=== PATIENT | female | born 1975 | race Hispanic/Latino ===

== ENCOUNTER 2024-04-06 01:27 | Emergency (ER) | payer SELFPAY ==
--- OUTSIDE RECORDS SUMMARY | 2024-04-06 01:31 | XMS REPORT | Continuity of Care Document ---
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 Phone PCP, PATIENT DOES NOT HAVE A Primary Care Physic federico Unavailable Abby Attending Clinician Unavailable Charles Almanza Attending Clinician [phone] CHARLES MORAES Attending Clinician Unavailable Kush Hubbard MD Attending Clinician [phone] Abby Admitting Clinician Unavailable CHARLES MORAES Admitting Clinician Unavailable Payers Payer Name Policy Type Policy Number Effective Date Expirati on Date Source Problems Condition Name Condition Details Condition Category Status Onset Date Resolution Date Last Treatment Date Treating Clinician Comments Source Nausea and vomiting Nausea and Vomiting Problem Active 09-11 00:00: 00 [facility] Acute urinary tract infection Acute Urinary Tract Infection Problem Active 09-11 00:00: 00 [facility] Dizziness Dizziness Problem Active 09-11 00:00: 00 [facility] Vertigo Vertigo Problem Active 09-11 00:00: 00 [facility] No known active problems No known active problems Disease [facility] Allergies, Adverse Reactions, Alerts Allergy Name Allergy Type Status Severity Reaction(s) Onset Date Inactive Date Treating Clinician Comments Source NO KNOWN ALLERGIE S Drug Class Active [facility] Social History Social Habit Start Date Stop Date Quantity Comments Source Sex Assigned At [facility] Smoking Status Start Date Stop Date Source Former Smoker Formerly [facility] Unknown if ever smoked [facility] Medications Ordered Medication Name Filled Medication Name Start Date Stop Date Current Medication? Ordering Clinician Indication Dosage Frequency Signature (SIG) Comments Components Source NaCl 0.9% (NS) bolus infusion 1,000 mL 09-25 20:15: 09-25 20:30 :00 No 1000mL at 999 mL/hr, 1,000 mL, IV Infusion, ONCE, 1 dose, 09/25/19 at 1415, STAT [facility] famotidine (PEPCID (PF)) injection 20 mg 09-25 20:15: 09-25 19:27 :00 No 20mg 20 mg, Slow IV Push, ONCE, 1 dose, 09/25/19 at 1415, [facility] ondansetron (ZOFRAN (PF)) injection 4 mg 09-25 20:15: 09-25 19:26 :00 No 4mg 4 mg, Slow IV Push, ONCE, 1 dose, 09/25/19 at 1415, [facility] proMETHazin e (PHENERGAN) 25 mg in NaCl 0.9% (NS) 50 mL piggyback 09-25 19:15: 09-25 18:15 :00 No 25mg 25 mg, IV Piggyback, ONCE, 1 dose, 09/25/19 at 1315, 50 mL [facility] NaCl 0.9% (NS) bolus infusion 1,000 mL 09-25 19:15: 09-25 19:08 :00 No 1000mL at 999 mL/hr, 1,000 mL, IV Infusion, ONCE, 1 dose, 09/25/19 at 1315, STAT [facility] proMETHazin e 25 mg tablet 09-25 00:00: 00 Yes [id number] 12.5mg Take 0.5 tablets by mouth every 6 (six) hours as needed for Nausea and Vomiting (N/V). [facility] proMETHazin e (PHENERGAN) 25 mg in NaCl 0.9% (NS) 50 mL piggyback -16 13:00: 00 08-13 13:00 :00 No 25mg 25 mg, IV Piggyback, ONCE, 1 dose, Lenore 08/13/19 at 0700, 50 mL [facility] ondansetron (ZOFRAN (PF)) injection 4 mg 08-13 11:45: 00 08-13 10:39 :00 No 4mg 4 mg, Slow IV Push, ONCE, 1 dose, Lenore 08/13/19 at 0545, ZEN [facility] NaCl 0.9% (NS) bolus infusion 1,000 mL 08-13 11:45: 00 08-13 13:37 :00 No 1000mL at 999 mL/hr, 1,000 mL, IV Infusion, ONCE, 1 dose, Lenore 08/13/19 at 0545, STAT [facility] NaCl 0.9% (NS) bolus infusion 1,000 mL 08-13 10:45: 00 08-13 12:02 :00 No 1000mL at 999 mL/hr, 1,000 mL, IV Infusion, ONCE, 1 dose, Lenore 08/13/19 at 0445, ZEN [facility] acetaminoph en-codeine (TYLENOL-CO DEINE #3) 300-30 mg tablet 08-13 00:00: 00 Yes [id number] 1{tbl} Take 1 tablet by mouth every 6 (six) hours as needed for Pain (scale 4-6). [facility] ondansetron (ZOFRAN ODT) 4 mg disintegrat ing tablet 08-13 00:00: 00 Yes [id number] 4mg Take 1 tablet by mouth every 8 (eight) hours as needed for Nausea and Vomiting (N/V). [facility] proMETHazin e 25 mg tablet 01-17 00:00: 00 Yes [id number] 25mg Take 1 tablet by mouth every 6 (six) hours as needed for Nausea and Vomiting (N/V). [facility] traMADOL (ULTRAM) 50 mg tablet 01-17 00:00: 00 Yes [id number] 50mg Take 1 tablet by mouth every 8 (eight) hours as needed for Pain (scale 4-6). [facility] proMETHazin e 25 mg suppository 01-17 00:00: 00 Yes [id number] 25mg Insert 1 Suppositor y into rectum every 4 (four) hours as needed for Nausea and Vomiting (N/V) for up to 6 doses. [facility] metoclopram alea HCl 10 mg tablet 11-29 00:00: 00 Yes [id number] 10mg Take 1 tablet by mouth every 6 (six) hours. [facility] ciprofloxac in 500 mg tablet Take 1 tablet every 12 hours by oral route for 5 days. ciprofloxac in 500 mg tablet Take 1 tablet every 12 hours by oral route for 5 days. No 1 Q12H ciprofloxa ayad 500 mg tablet Take 1 tablet every 12 hours by oral route for 5 days. [facility] ondansetron 4 mg disintegrat ing tablet Place 1 tablet every 12 hours by translingua l route as needed. FOR NAUSEA/VOMI TING ondansetron 4 mg disintegrat ing tablet Place 1 tablet every 12 hours by translingua l route as needed. FOR NAUSEA/VOMI TING No 1 Q12H ondansetro n 4 mg disintegra ting tablet Place 1 tablet every 12 hours by translingu al route as needed. FOR NAUSEA/VOM ITING [facility] Vital Signs Vital Name Observation Time Observation Value Comments S ource BP Diastolic 2022-09-11 00:00:00 78 mm[Hg] [facility] Height 2022-09-11 00:00:00 62 [in_i] [facility] BMI (Body Mass Index) 2022-09-11 00:00:00 31.8 kg/m2 [facility] BP Systolic 2022-09-11 00:00:00 120 mm[Hg] [facility] Body Weight 2022-09-11 00:00:00 2777.6 [oz_av] [facility] Systolic blood pressure 2019-09-25 20:58:00 143 mm[Hg] [facility] Diastolic blood pressure 2019-09-25 20:58:00 89 mm[Hg] [facility] Heart rate 2019-09-25 20:58:00 81 /min [facility] Respiratory rate 2019-09-25 20:58:00 12 /min [facility] Oxygen saturation in Arterial blood by Pulse oximetry 2019-09-25 20:58:00 100 /min [facility] Body temperature 2019-09-25 17:55:00 36.78 [facility] Body height 2019-09-25 17:52:00 157.5 cm [facility] Body weight 2019-09-25 17:52:00 63.504 kg [facility] BMI 2019-09-25 17:52:00 25.61 kg/m2 [facility] Systolic blood pressure 2019-08-13 13:00:00 99 mm[Hg] [facility] Diastolic blood pressure 2019-08-13 13:00:00 62 mm[Hg] [facility] Heart rate 2019-08-13 13:00:00 60 /min [facility] Respiratory rate 2019-08-13 13:00:00 15 /min [facility] Oxygen saturation in Arterial blood by Pulse oximetry 2019-08-13 13:00:00 98 /min [facility] Body temperature 2019-08-13 10:28:49 35.83 [facility] Body weight 2019-08-13 10:26:00 68.04 kg [facility] Procedures Procedure Date / Time Performed Performing Clinician Source URINALYSIS 2019-09-25 20:29:00 [facility]aes [facility] XR KUB 2019-09-25 20:08:31 [facility] Moraes [facility] LIPASE 2019-09-25 18:15:00 Charles Moraes [facility] TEST, SERUM 2019-09-25 18:15:00 Thalia Moraes [facility] TROPONIN I 2019-09-25 18:15:00 Charles Moraes [facility] COMP. METABOLIC PANEL ([id number]) 2019-09-25 18:15:00 Charles Moraes [facility] ETHANOL 2019-09-25 18:15:00 Charles Moraes [facility] CBC WITH DIFFERENTIAL 2019-09-25 18:15:00 Thalia Moraes [facility] CONSENT/REFUSAL FOR DIAGNOSIS AND TREATMENT 2019-09-25 17:43:43 Doctor Unassigned, [place] [facility] CT ABDOMEN PELVIS WO CONTRAST 2019-08-13 11:55:51 Kush Hubbard [facility] NOTICE OF PRIVACY PRACTICES 2019-08-13 10:58:34 Doctor Unassigned, [place] [facility] LIPASE 2019-08-13 10:40:00 Kush Hubbard [facility] COMP. METABOLIC PANEL ([id number]) 2019-08-13 10:40:00 Kush Hubbard [facility] CBC WITH DIFFERENTIAL 2019-08-13 10:40:00 Kush Hubbard [facility] URINALYSIS 2019-08-13 10:40:00 Kush Hubbard [facility] POCT TEST 2019-08-13 10:40:00 Kush Hubbard [facility] CONSENT/REFUSAL FOR DIAGNOSIS AND TREATMENT 2019-08-13 10:13:09 Doctor Unassigned, [place] [facility] Plan of Care Planned Activity Planned Date Details Comments Source Diagnostic Test Pending 2022-09-11 00:00:00 urinalysis, dipstick [code = urinalysis, dipstick] [facility] Instructions [facility] Encounters Start Date/Time End Date/Time Encounter Type Admission Type Attending [facility] Care Facility Care Department Encounter ID Source 2022-09-11 00:00:00 2022-09-11 00:00:00 Outpatient Abby [facility] [id number] 2022-09-11 00:00:00 2022-09-11 00:00:00 Kelsey Weston APRN, MSN, [facility]-: [address], [address], [place] [address] , Ph. [facility] [id number] [facility] 2022-09-10 00:00:00 2022-09-10 00:00:00 Outpatient Abby [facility] [id number] [facility] 2019-09-25 12:02:36 2019-09-25 15:40:00 Emergency Charles Moraes [facility] [id number] [facility] 2019-09-25 12:02:36 2019-09-25 15:40:00 Emergency X [facility] ERT [id number] [facility] 2019-08-13 04:20:37 2019-08-13 07:37:00 Emergency Kush Hubbard [facility] [id number] [facility] Results Test Description Test Time Test Comments Results Result Co mments Source [facility]:00* Test Item Value Reference Range Interpretation Comme nts APPEARANCE (test code = 5860918329) Clear Clear COLOR (test code = 8235311160) Yellow Yellow PH (test code = 4011973907) 4.8-8.0 SP GRAVITY (test code = 1928377267) 1.003-1.030 GLU U QUAL (test code = 9053088369) Normal Normal BLOOD (test code = 4167767877) 1+ Negative A KETONES (test code = 1512437749) 20 mg/dL Negative A PROTEIN (test code = 2887-8) Negative Negative UROBILIN (test code = 4303567767) Normal Normal BILIRUBIN (test code = 3637171042) Negative Negative NITRITE (test code = 8954266091) Negative Negative LEUK VIVIEN (test code = 2476346551) Negative Negative RBC/HPF (test code = 7471669659) See_Comment H [Automated messa ge] The system which generated this result transmitted reference range: 0 - 3 HPF. The reference range was not used to interpret this result as normal/abnormal. WBC/HPF (test code = 2626030579) See_Comment [Automated [employer] INT[employer]] The system which generated this result transmitted reference range: 0 - 5 HPF. The reference range was not used to interpret this result as normal/abnormal. BACTERIA (test code = 8093626258) Few Negative A MUCOUS (test code = 4253390626) Slight Negative LPF A SQ EPITH (test code = 1174016099) HPF HYAL CAST (test code = 8945726180) See_Comment [Automated Boundary] The system which generated this result transmitted reference range: <=2 LPF. The reference range was not used to interpret this result as normal/abnormal. Lab Interpretation (test code = 02016-3) [facility]normal [facility] [id number] 20:44:12No acute radiographic abnormality.EXAM: XR KUB HISTORY: 44 year-old woman with nausea and vomiting . TECHNIQUE: Supine radiographic view of the abdomen COMPARISON: CT abdomen pelvis, 08/13/2019. FINDINGS:Statements: None. Lines and tubes: None. Bowel: Bowel gas pattern is unremarkable. Small amount of gas visualizedwithin the stomach and in scattered bowel loops. No dilated gas-filledbowel. Bones:Bones are unremarkable. Other: No clinically relevant calcifications. Surgical clips in the rightupper quadrant and right pelvis. [facility], Radiant Results Inft User - 09/25/2019 2:45 PM CSTEXAM: XR KUBHISTORY: 44 year-old woman with nausea and vomiting .TECHNIQUE: Supine radiographic view of the abdomenCOMPARISON: CT abdomen pelvis, 08/13/2019.FINDINGS:Statements: None.Lines and tubes: None.Bowel: Bowel gas pattern is unremarkable. Small amount of gas visualizedwithin the stomach and in scattered bowel loops. No dilated gas-filledbowel.Bones: Bones are unremarkable. Other: No clinically relevant calcifications. Surgical clips in the rightupper quadrant and right pelvis.IMPRESSIONNo acute radiographic abnormality.[facility] 19:09:00* Test Item Value Reference Range Interpretation Comme nts ALCOHOL (test code = 8296945459) <10 mg/dL SANJUANITA (test code = SANJUANITA) <10 [id number] Toxic>100 Depression of SUPPORTABILITY ENGINEER>400 Fatalities Reported [facility], [id number] 18:54:00* Test Item Value Reference Range Interpretation Comme nts PREG SERUM (test code = 7816912465) Negative SANJUANITA (test code = SANJUANITA) Less than 10 IU/L. ?If low titer or ectopic is suspected, resubmit specimen in 48-72 hours. [facility]. METABOLIC PANEL ([id number])2019-09-25 18:45:00* Test Item Value Reference Range Interpretation Comme nts NA (test code = 0149279964) 141 mmol/L 135-145 K (test code = 7780587208) 3.7 mmol/L 3.5-5 CL (test code = 6633697866) 107 mmol/L 98-108 CO2 TOTAL (test code = 4880006852) 27 mmol/L 23-31 AGAP (test code = 7416512857) 2-16 BUN (test code = 3839631494) 11 mg/dL 7-23 GLUCOSE (test code = 8118443913) 134 mg/dL 70-110 H CREATININE (test code = 0646640358) 0.51 mg/dL 0.5-1.04 TOTAL BILI (test code = 1528032864) 0.3 mg/dL 0.1-1.1 CALCIUM (test code = 9905986054) 9.7 mg/dL 8.6-10.6 T PROTEIN (test code = 5636179837) 7.9 g/dL 6.3-8.2 ALBUMIN (test code = 0468607240) 5.0 g/dL 3.5-5 ALK PHOS (test code = 0366603353) 68 U/L 34-122 ALTv (test code = 1742-6) 16 U/L 5-35 AST(SGOT) (test code = 5692551804) 30 U/L 13-40 eGFR Calculation (Non-) (test code = 3966896301) mL/min/1.73m2 eGFR Calculation () (test code = 7612338000) mL/min/1.73m2 SANJUANITA (test code = SANJUANITA) Association of Glomerular Filtration Rate (GFR) and Staging of Kidney Disease* + --+ --+ ------+| GFR (mL/min/1.73 m2) ?| With Kidney Damage ?| ?Without Kidney Damage+ --------+ --------+ +| ?>90 ?| ?Stage one ?| ? Normal ?+ ---+ ---+ -------+| ?60-89 ?| ?Stage two ?| ? Decreased GFR ? + --+ --+ ------+| ?30-59 ?| ?Stage three ?| ? Stage three ? + --+ --+ ------+| ?15-29 ?| ?Stage four ? | ? Stage four ?+ ---+ ---+ -------+| ?<15 (or dialysis) ? ?| ?Stage five ? | ? Stage five ?+ ---+ ---+ -------+ *Each stage assumes the associated GFR level has been in effect for at least three months. ?Stages 1 to 5, with or without kidney disease, indicate chronic kidney disease. Notes: Determination of stages one and two (with eGFR >59mL/min/1.73 m2) requires estimation of kidney damage for at least three months as defined by structural or functional abnormalities of the kidney, manifested by either:Pathological abnormalities or Markers of kidney damage (including abnormalities in the composition of the blood or urine or abnormalities in imaging tests). Lab Interpretation (test code = 43985-4) Abnormal [facility]2020-[facility] 18:45:00* Test Item Value Reference Range Interpretation Comme nts LIPASE (test code = 2280931746) 47 U/L 0-220 Lab Interpretation (test cod e = 55780-9) Normal [facility] WITH [id number] 18:34:00* Test Item Value Reference Range Interpretation Comme nts WBC (test code = 6690-2) See_Comment H [Automated message] The system which generated this result transmitted reference range: 4.30 - 11.10 10*3/?L. The reference range was not used to interpret this result as normal/abnormal. RBC (test code = 789-8) See_Comment [Automated message] The system which generated this result transmitted reference range: 3.93 - 5.25 10*6/?L. The reference range was not used to interpret this result as normal/abnormal. HGB (test code = 718-7) 13.8 g/dL 11.6-15 HCT (test code = 4544-3) 40.4 % 35.7-45.2 MCV (test code = 787-2) 93.5 fL 80.6-95.5 MCH (test code = 785-6) 31.9 pg 25.9-32.8 MCHC (test code = 786-4) 34.2 g/dL 31.6-35.1 RDW-SD (test code = 85062-8) 41.9 fL 39-49.9 RDW-CV (test code = 788-0) 12.1 % 12-15.5 PLT (test code = 777-3) See_Comment [Automated message] The system which generated this result transmitted reference range: 166 - 358 10*3/?L. The reference range was not used to interpret this result as normal/abnormal. MPV (test code = 92772-1) 10.3 fL 9.5-12.9 NRBC/100 WBC (test code = 5029855316) See_Comment [Automated message] The system which generated this result transmitted reference range: 0.0 - 10.0 /100 WBCs. The reference range was not used to interpret this result as normal/abnormal. NRBC x10^3 (test code = 3995761337) <0.01 See_Comment [Automated message] The system which generated this result transmitted reference range: 10*3/?L. The reference range was not used to interpret this result as normal/abnormal. GRAN MAT (NEUT) % (test code = 770-8) 90.5 % IMM GRAN % (test code = 0080775276) 0.30 % LYMPH % (test code = 736-9) 7.6 % MONO % (test code = 5905-5) 1.3 % EOS % (test code = 713-8) 0.0 % BASO % (test code = 706-2) 0.3 % GRAN MAT x10^3(ANC) (test code = 6899103913) 11.51 10*3/uL 1.88-7.09 H IMM GRAN x10^3 (test code = 9974556107) 0.04 10*3/uL 0-0.06 LYMPH x10^3 (test code = 731-0) 0.97 10*3/uL 1.32-3.29 L MONO x10^3 (test code = 742-7) 0.16 10*3/uL 0.33-0.92 L EOS x10^3 (test code = 711-2) <0.03 0.03-0.39 L BASO x10^3 (test code = 704-7) 0.04 10*3/uL 0.01-0.07 Lab Interpretation (test code = 03587-3) [facility] P[facility] WO [id number] 12:03:221. Evaluation of the bowel limited by the lack of oral and IV contrast.There does, however, appear to be subtle fat stranding adjacent to thedistal ileum extending to the terminal ileum. Findings suspicious for aninfectious or inflammatory enteritis. 2. No renal or ureteral stones. No hydronephrosis. RL: [id number]: [id number] End of Report EXAM: CT ABDOMEN PELVIS WO CONTRAST ORDERING PHYSICIAN: ? CATY HART HISTORY: Abdominal Pain.COMPARISON: none TECHNIQUE: CT of the abdomen and pelvis without IV contrast. Coronal andsagittal reformatted images were obtained. CT performed according to ALARAprinciples. CT OF THE ABDOMEN WITHOUT CONTRAST:The lung bases are clear. Evaluation of the solid organs is limited by thelack of IV contrast. ?The liver is normal. ?The patient is postcholecystectomy. There is dilation of the common bile duct measuring up to11 mm. This is likely related to cholecystectomy status. The spleen isnormal. The pancreas is normal. The adrenals are normal. ?There are norenal or ureteral stones. There is no hydronephrosis. Evaluation of the bowel is limited by the lack of oral and IV contrast.There appearsto be subtle stranding adjacent to the distal ileum extendingto the terminal ileum. No significant wall thickening is present. There areno dilated loops of small bowel. Colon is unremarkable. Colon is mostlydecompressed. The appendix is seen in the right lower quadrant and isnormal. The intra-abdominal vasculature is normal. There is no free air,free fluid, or pathologic lymphadenopathy. CT OF THE PELVIS WITHOUT CONTRAST:The rectum and sigmoid are normal. The distal ureters and bladder arenormal. ?There is no free fluid or pathologic lymphadenopathy in thepelvis. Uterus and adnexa appear normal. Soft tissues are unremarkable. Osseous structures are unremarkable. [facility], Radiant Results Inft Us er - 08/13/2019 6:05 AM CSTEXAM: CT ABDOMEN PELVIS WO CONTRASTORDERING PHYSICIAN: KUSH HUBBARD HISTORY: Abdominal Pain.COMPARISON: noneTECHNIQUE: CT of the abdomen and pelvis without IV contrast. Coronal andsagittal reformatted images were obtained. CT performed according to ALARAprinciples.CT OF THE ABDOMEN WITHOUT CONTRAST:The lung bases are clear. Evaluation of the solid organs is limited by thelack of IV contrast. The liver is normal. The patient is postcholecystectomy. There is dilation of the common bile duct measuring up to11 mm. This is likely related to cholecystectomy status. The spleen isnormal. The pancreas is normal. The adrenals are normal. There are norenal or ureteral stones.There is no hydronephrosis. Evaluation of the bowel is limited by the lack of oral and IV contrast.There appears to be subtle stranding adjacent to the distal ileum extendingto the terminal ileum. Nosignificant wall thickening is present. There areno dilated loops of small bowel. Colon is unremarkable. Colon is mostlydecompressed. The appendix is seen in the right lower quadrant and isnormal. The intra-abdominal vasculature is normal. There is no free air,free fluid, or pathologic lymphadenopathy.CT OF THE PELVIS WITHOUT CONTRAST:The rectum and sigmoid are normal. The distal ureters and bladder arenormal. There is no free fluid or pathologic lymphadenopathy in thepelvis. Uterus and adnexa appear normal.Soft tissues are unremarkable. Osseous structures are unremarkable. IMPRESSION1. Evaluation of the bowel limited by the lack of oral and IV contrast.There does, however, appear to be subtle fat stranding adjacent to thedistal ileum extending to the terminal ileum. Findings suspicious for aninfectious or inflammatory enteritis.2. No renal or ureteral stones. No hydronephrosis.RL: [id number]: [id number] of Report [facility] [id number] 11:25:00* Test Item Value Reference Range Interpretation Comme nts APPEARANCE (test code = 8675830538) Cloudy Clear A COLOR (test code = 3795012138) Yellow Yellow PH (test code = 0358167588) 4.8-8.0 SP GRAVITY (test code = 4031470689) 1.003-1.030 GLU U QUAL (test code = 1406477307) Normal Normal BLOOD (test code = 7758698639) 1+ Negative A KETONES (test code = 9479891051) Negative Negative PROTEIN (test code = 2887-8) Negative Negative UROBILIN (test code = 3011206351) Normal Normal BILIRUBIN (test code = 0148697309) Negative Negative NITRITE (test code = 5345334359) Negative Negative LEUK VIVIEN (test code = 2292439618) 25/uL Negative A RBC/HPF (test code = 4281303697) See_Comment H [Automated messa ge] The system which generated this result transmitted reference range: 0 - 3 HPF. The reference range was not used to interpret this result as normal/abnormal. WBC/HPF (test code = 3197910246) See_Comment H [Automated messa ge] The system which generated this result transmitted reference range: 0 - 5 HPF. The reference range was not used to interpret this result as normal/abnormal. BACTERIA (test code = 3569570804) Few Negative A MUCOUS (test code = 8860276225) Slight Negative LPF A AMORPHOUS (test code = 9889107524) Moderate Rare HPF A SQ EPITH (test code = 7756766760) HPF Lab Interpretation (test code = 81641-7) Abnormal [facility] Metabolic [id number] 11:12:00* Test Item Value Reference Range Interpretation Comme nts NA (test code = 3888418605) 142 mmol/L 135-145 K (test code = 6814698844) 4.1 mmol/L 3.5-5 CL (test code = 2690605978) 106 mmol/L 98-108 CO2 TOTAL (test code = 4497156179) 27 mmol/L 23-31 AGAP (test code = 4303106324) 2-16 BUN (test code = 0920100018) 16 mg/dL 7-23 GLUCOSE (test code = 5608521391) 120 mg/dL 70-110 H CREATININE (test code = 6980817433) 0.71 mg/dL 0.5-1.04 TOTAL BILI (test code = 9650759416) 0.2 mg/dL 0.1-1.1 CALCIUM (test code = 4661955904) 9.7 mg/dL 8.6-10.6 T PROTEIN (test code = 2035200830) 7.6 g/dL 6.3-8.2 ALBUMIN (test code = 4585488833) 4.6 g/dL 3.5-5 ALK PHOS (test code = 4428182867) 61 U/L 34-122 ALTv (test code = 1742-6) 14 U/L 5-35 AST(SGOT) (test code = 5046995754) 26 U/L 13-40 eGFR Calculation (Non-) (test code = 4922766628) mL/min/1.73m2 eGFR Calculation () (test code = 3961994019) mL/min/1.73m2 SANJUANITA (test code = SANJUANITA) Association of Glomerular Filtration Rate (GFR) and Staging of Kidney Disease* + --+ --+ ------+| GFR (mL/min/1.73 m2) ?| With Kidney Damage ?| ?Without Kidney Damage+ --------+ --------+ +| ?>90 ?| ?Stage one ?| ? Normal ?+ ---+ ---+ -------+| ?60-89 ?| ?Stage two ?| ? Decreased GFR ? + --+ --+ ------+| ?30-59 ?| ?Stage three ?| ? Stage three ? + --+ --+ ------+| ?15-29 ?| ?Stage four ? | ? Stage four ?+ ---+ ---+ -------+| ?<15 (or dialysis) ? ?| ?Stage five ? | ? Stage five ?+ ---+ ---+ -------+ *Each stage assumes the associated GFR level has been in effect for at least three months. ?Stages 1 to 5, with or without kidney disease, indicate chronic kidney disease. Notes: Determination of stages one and two (with eGFR >59mL/min/1.73 m2) requires estimation of kidney damage for at least three months as defined by structural or functional abnormalities of the kidney, manifested by either:Pathological abnormalities or Markers of kidney damage (including abnormalities in the composition of the blood or urine or abnormalities in imaging tests). Lab Interpretation (test code = 24003-7) [facility] [id number] 11:11:00* Test Item Value Reference Range Interpretation Comme nts LIPASE (test code = 4627231987) 176 U/L 0-220 Lab Interpretation (test cod e = 84745-8) [facility] WITH [id number] 10:52:00* Test Item Value Reference Range Interpretation Comme nts WBC (test code = 6690-2) See_Comment H [Automated message] The system which generated this result transmitted reference range: 4.30 - 11.10 10*3/?L. The reference range was not used to interpret this result as normal/abnormal. RBC (test code = 789-8) See_Comment [Automated message] The system which generated this result transmitted reference range: 3.93 - 5.25 10*6/?L. The reference range was not used to interpret this result as normal/abnormal. HGB (test code = 718-7) 13.7 g/dL 11.6-15 HCT (test code = 4544-3) 42.2 % 35.7-45.2 MCV (test code = 787-2) 96.3 fL 80.6-95.5 H MCH (test code = 785-6) 31.3 pg 25.9-32.8 MCHC (test code = 786-4) 32.5 g/dL 31.6-35.1 RDW-SD (test code = 28857-3) 43.1 fL 39-49.9 RDW-CV (test code = 788-0) 12.0 % 12-15.5 PLT (test code = 777-3) See_Comment [Automated message] The system which generated this result transmitted reference range: 166 - 358 10*3/?L. The reference range was not used to interpret this result as normal/abnormal. MPV (test code = 06519-1) 11.2 fL 9.5-12.9 NRBC/100 WBC (test code = 2054907968) See_Comment [Automated message] The system which generated this result transmitted reference range: 0.0 - 10.0 /100 WBCs. The reference range was not used to interpret this result as normal/abnormal. NRBC x10^3 (test code = 5034249337) <0.01 See_Comment [Automated message] The system which generated this result transmitted reference range: 10*3/?L. The reference range was not used to interpret this result as normal/abnormal. GRAN MAT (NEUT) % (test code = 770-8) 79.5 % IMM GRAN % (test code = 3712625594) 0.40 % LYMPH % (test code = 736-9) 15.0 % MONO % (test code = 5905-5) 4.2 % EOS % (test code = 713-8) 0.6 % BASO % (test code = 706-2) 0.3 % GRAN MAT x10^3(ANC) (test code = 9655817414) 10.10 10*3/uL 1.88-7.09 H IMM GRAN x10^3 (test code = 0522587758) 0.05 10*3/uL 0-0.06 LYMPH x10^3 (test code = 731-0) 1.91 10*3/uL 1.32-3.29 MONO x10^3 (test code = 742-7) 0.53 10*3/uL 0.33-0.92 EOS x10^3 (test code = 711-2) 0.07 10*3/uL 0.03-0.39 BASO x10^3 (test code = 704-7) 0.04 10*3/uL 0.01-0.07 Lab Interpretation (test code = 66654-1) [facility] [id number] 10:40:00* Test Item Value Reference Range Interpretation Comme nts POCT PREG (test code = 1605) negative On board controls acceptable with C Line (test code = 3574) present POCT PREG LOT # (test code = 3575) POCT PREG TEST DATE ( test code = 3576) 02-25-2021 Lab Interpretation (test cod e = 80448-9) Normal [facility]"
[2024-04-06] MEDS ORDERED: ONDANSETRON 4 MG (ODT) TAB ONE (02:02)
[2024-04-06] MEDS ORDERED: LIDOCAINE 2% MPF 5 ML VIAL ONE (02:02)
--- NOTE | 2024-04-06 02:33 | EDPHYS ---
Physician Documentation [facility] Name: Brandi Felix Age: 48 yrs Sex: Female : 1975 Arrival Date: 04/06/2024 Time: 01:27 Bed 10 Private MD: ED Physician Tommy Solares HPI: 04/06 02:28 This 48 yrs old Female presents to ER via Ambulatory with complaints of ec2 Foreign Body In Ear. 02:28 Arrives today for evaluation due to concern for possible foreign body in the right ear. ec2 States that she feels some movement and some buzzing.. Historical: - Allergies: 02:21 No Known Allergies; jb4 - PMHx: 02:21 None; jb4 - PSHx: 02:21 None; jb4 - Immunization history:: Adult Immunizations up to date. - Infectious Disease History:: Denies. - Social history:: Smoking status: Patient denies any tobacco usage or history of. ROS: 02:28 Constitutional: as per hpi ec2 Exam: 02:28 Constitutional: GEN: NAD Head: atraumatic Eyes: EOMI Ears: External ears are normal. ec2 Right ear with small insect noted. CV: regular rate LUNGS: no respiratory distress ABD: non-distended SKIN: no evidence of rashes MSK: no evidence of trauma Vital Signs: 02:20 BP 105 / 75; Pulse 55; Resp 16; Temp 98.7(TE); Pulse Ox 100% on R/A; jb4 MDM: 01:48 Patient medically screened. ec2 02:28 Data reviewed: vital signs. ED course: Patient arrives today for evaluation of possible ec2 foreign body in the right ear. Examination remarkable for ear findings as above. I placed liquid lidocaine in the right ear, used forceps as well as curette and had a large particulate of insect matter. I also suction the area. Patient with marked improvement in her symptoms, I did give her Zofran prophylactically. Will discharge home. Return precautions given. . Administered Medications: 02:00 Drug: Ondansetron PO 4 mg PO once Route: PO; jb4 02:46 Follow up: Response: No adverse reaction; Marked relief of symptoms jb4 02:00 Drug: Lidocaine Infiltration (2 %) 1 application 5 ml Infiltration once; to bedside jb4 {Note: Administered by ER physician to right ear canal..} Volume: 5 ml; Route: Infiltration; 02:46 Not Given (medication not available): ofloxacindrops 0.3 % 10 drops Ophthalmic once jb4 Disposition Summary: 04/06/24 02:32 Discharge Ordered Notes: Location: Home ec2 Condition: Stable ec2 Diagnosis - Foreign body in Right Ear ec2 - Unspecified otitis externa, right ear ec2 Followup: ec2 - With: Private Physician - When: - Reason: Re-evaluation by your physician Discharge Instructions: - Discharge Summary Sheet ec2 - Ear Drops, Adult ec2 Forms: - Medication Reconciliation Form ec2 - Antibiotic Education ec2 - Prescription Opioid Use ec2 - Patient Portal Instructions ec2 - Leadership Thank You Letter ec2 Prescriptions: - ofloxacin 0.3 % Otic drops - instill 10 drop OTIC route daily for 7 days; 5 milliliter; Refills: 0, Product ec2 Selection Permitted Signatures: Bereket Miller RN RN jb4 Tommy Solares MD MD ec2
--- NOTE | 2024-04-06 02:33 | ER ---
Nurse's Notes [facility] Name: Brandi Felix Age: 48 yrs Sex: Female : 1975 Arrival Date: 04/06/2024 Time: 01:27 Bed 10 Private MD: Diagnosis: Foreign body in Right Ear;Unspecified otitis externa, right ear Presentation: 04/06 02:20 Chief complaint: Patient states: I think I have a bug in my ear. Coronavirus screen: At jb4 this time, the client does not indicate any symptoms associated with coronavirus-19. Ebola Screen: No symptoms or risks identified at this time. Initial Sepsis Screen: Does the patient meet any 2 criteria? No. Patient's initial sepsis screen is negative. Does the patient have a suspected source of infection? No. Patient's initial sepsis screen is negative. Risk Assessment: Do you want to hurt yourself or someone else? Patient reports no desire to harm self or others. Onset of symptoms was April 06, 2024. Transition of care: patient was not received from another setting of care. 02:20 Method Of Arrival: Ambulatory jb4 02:20 Acuity: TERRENCE 4 jb4 Historical: - Allergies: 02:21 No Known Allergies; jb4 - PMHx: 02:21 None; jb4 - PSHx: 02:21 None; jb4 - Immunization history:: Adult Immunizations up to date. - Infectious Disease History:: Denies. - Social history:: Smoking status: Patient denies any tobacco usage or history of. Screenin:46 [facility] ED Fall Risk Assessment (Adult) History of falling in the last 3 months, jb4 including since admission No falls in past 3 months (0 pts) Confusion or Disorientation No (0 pts) Intoxicated or Sedated No (0 pts) Impaired Gait No (0 pts) Mobility Assist Device Used No (0 pt) Altered Elimination No (0 pt) Score/Fall Risk Level 0 - 2 = Low Risk Oriented to surroundings, Maintained a safe environment. Abuse screen: Denies threats or abuse. Nutritional screening: No deficits noted. Tuberculosis screening: No symptoms or risk factors identified. Assessment: 02:22 General: Appears in no apparent distress. uncomfortable, Behavior is cooperative, jb4 anxious. Pain: Complains of pain in right ear Pain does not radiate. Pain currently is 7 out of 10 on a pain scale. Neuro: Level of Consciousness is awake, alert, obeys commands, Oriented to person, place, time, situation. Cardiovascular: Patient's skin is warm and dry. Respiratory: Airway is patent Respiratory effort is even, unlabored, Respiratory pattern is regular, symmetrical. EENT: Ear canal Pt reports bug in ear.. Derm: Skin is intact, Skin is pink, warm \T\ dry. Vital Signs: 02:20 BP 105 / 75; Pulse 55; Resp 16; Temp 98.7(TE); Pulse Ox 100% on R/A; jb4 ED Course: 01:29 Patient arrived in ED. jj6 01:33 Tommy Solares MD is Attending Physician. ec2 02:21 Triage completed. jb4 02:21 Arm band placed on right wrist. jb4 02:46 Patient has correct armband on for positive identification. Bed in low position. Call jb4 light in reach. Side rails up X 1. Provided Education on: discharge instructions.. 02:46 No provider procedures requiring assistance completed. Patient did not have IV access jb4 during this emergency room visit. Administered Medications: 02:00 Drug: Ondansetron PO 4 mg PO once Route: PO; jb4 02:46 Follow up: Response: No adverse reaction; Marked relief of symptoms jb4 02:00 Drug: Lidocaine Infiltration (2 %) 1 application 5 ml Infiltration once; to bedside jb4 {Note: Administered by ER physician to right ear canal..} Volume: 5 ml; Route: Infiltration; 02:46 Not Given (medication not available): ofloxacindrops 0.3 % 10 drops Ophthalmic once jb4 Outcome: 02:32 Discharge ordered by . ec2 02:46 Discharged to home ambulatory, jb4 02:46 Condition: stable 02:46 Discharge instructions given to patient, Instructed on discharge instructions, follow up and referral plans. medication usage, Demonstrated understanding of instructions, follow-up care, medications, Prescriptions given X 1, 02:47 Patient left the ED. jb4 Signatures: Bereket Miller, RN RN jb4 Laura Muñoz jj6 Tommy Solares MD MD ec2
[2024-04-06 02:51] VITALS: BP 105/75; TEMP 98.7; O2SAT 100
== END 2024-04-06 02:47 | disposition home or self-care (01) ==
LOC: ER 01:27
PROC: 09C3XZZ Extirpation of Matter from Right External Auditory Canal, External Approach (ICD-10-PCS; principal; 2024-04-06)
DX: T16.1XXA Foreign body in right ear, initial encounter (principal); H60.91 Unspecified otitis externa, right ear
CPT/HCPCS: 99283; J2001; Q0162

== ENCOUNTER 2024-06-08 07:22 | Emergency (ER) | payer SELFPAY ==
--- OUTSIDE RECORDS SUMMARY | 2024-06-08 07:26 | XMS REPORT | Continuity of Care Document ---
Author Name Unknown Address [address] [facility]. [phone] [facility] thconnect Address [address] [facility]. [phone] Care Team Providers Care [employer] Name Role Phone PCP, PATIENT DOES NOT HAVE A Primary Care Physic federico Unavailable Abby Attending Clinician Unavailable Charles Almanza Attending Clinician CHARLES MORAES Attending Clinician Unavailable Kush Hubbard MD Attending Clinician [phone] L_Enrico Admitting Clinician Unavailable CHARLES MORAES Admitting Clinician Unavailable Payers Payer Name Policy Type Policy Number Effective Date Expirati on Date Source Problems Condition Name Condition Details Condition Category Status Onset Date Resolution Date Last Treatment Date Treating Clinician Comments Source Nausea and vomiting Nausea and Vomiting Problem Active 09-11 00:00: 00 [facility] Acute urinary tract infection Acute Urinary Tract Infection Problem Active 09-11 00:00: 00 [facility] Dizziness Dizziness Problem Active 09-11 00:00: 00 [facility] Vertigo Vertigo Problem Active 09-11 00:00: 00 [facility] No known active problems No known active problems Disease [facility] Allergies, Adverse Reactions, Alerts Allergy Name Allergy Type Status Severity Reaction(s) Onset Date Inactive Date Treating Clinician Comments Source NO KNOWN ALLERGIE S Drug Class Active [facility] Social History Social Habit Start Date Stop Date Quantity Comments Source Sex Assigned At [facility] Smoking Status Start Date Stop Date Source Former Smoker [facility] Unknown if ever smoked [facility] Medications Ordered Medication Name Filled Medication Name Start Date Stop Date Current Medication? Ordering Clinician Indication Dosage Frequency Signature (SIG) Comments Components Source NaCl 0.9% (NS) bolus infusion 1,000 mL 09-25 20:15: 09-25 20:30 :00 No 1000mL at 999 mL/hr, 1,000 mL, IV Infusion, ONCE, 1 dose, 09/25/19 at 1415, STAT [facility] famotidine (PEPCID (PF)) injection 20 mg 09-25 20:15: 00 09-25 19:27 :00 No 20mg 20 mg, Slow IV Push, ONCE, 1 dose, 09/25/19 at 1415, [facility] ondansetron (ZOFRAN (PF)) injection 4 mg 09-25 20:15: 00 09-25 19:26 :00 No 4mg 4 mg, Slow IV Push, ONCE, 1 dose, 09/25/19 at 1415, [facility] proMETHazin e (PHENERGAN) 25 mg in NaCl 0.9% (NS) 50 mL piggyback 09-25 19:15: 00 09-25 18:15 :00 No 25mg 25 mg, IV Piggyback, ONCE, 1 dose, 09/25/19 at 1315, 50 mL [facility] NaCl 0.9% (NS) bolus infusion 1,000 mL 09-25 19:15: 09-25 19:08 :00 No 1000mL at 999 mL/hr, 1,000 mL, IV Infusion, ONCE, 1 dose, 09/25/19 at 1315, STAT [facility] proMETHazin e 25 mg tablet 09-25 00:00: 00 Yes [id number] 12.5mg Take 0.5 tablets by mouth every 6 (six) hours as needed for Nausea and Vomiting (N/V). [facility] proMETHazin e (PHENERGAN) 25 mg in NaCl 0.9% (NS) 50 mL piggyback 08-13 13:00: 00 08-13 13:00 :00 No 25mg 25 mg, IV Piggyback, ONCE, 1 dose, Lenore 08/13/19 at 0700, 50 mL [facility] ondansetron (ZOFRAN (PF)) injection 4 mg 08-13 11:45: 00 08-13 10:39 :00 No 4mg 4 mg, Slow IV Push, ONCE, 1 dose, Lenore 08/13/19 at 0545, ZEN [facility] NaCl 0.9% (NS) bolus infusion 1,000 mL 08-13 11:45: 00 08-13 13:37 :00 No 1000mL at 999 mL/hr, 1,000 mL, IV Infusion, ONCE, 1 dose, Lenore 08/13/19 at 0545, STAT [facility] NaCl 0.9% (NS) bolus infusion 1,000 mL 08-13 10:45: 00 08-13 12:02 :00 No 1000mL at 999 mL/hr, 1,000 mL, IV Infusion, ONCE, 1 dose, Lenore 08/13/19 at 0445, ZEN [facility] acetaminoph en-codeine (TYLENOL-CO DEINE #3) 300-30 mg tablet 08-13 00:00: 00 Yes [id number] 1{tbl} Take 1 tablet by mouth every 6 (six) hours as needed for Pain (scale 4-6). [facility] ondansetron (ZOFRAN ODT) 4 mg disintegrat ing tablet 08-13 00:00: 00 Yes [id number] 4mg Take 1 tablet by mouth every 8 (eight) hours as needed for Nausea and Vomiting (N/V). [facility] proMETHazin e 25 mg tablet 01-17 00:00: 00 Yes [id number] 25mg Take 1 tablet by mouth every 6 (six) hours as needed for Nausea and Vomiting (N/V). [facility] traMADOL (ULTRAM) 50 mg tablet 01-17 00:00: 00 Yes [id number] 50mg Take 1 tablet by mouth every 8 (eight) hours as needed for Pain (scale 4-6). [facility] proMETHazin e 25 mg suppository 01-17 00:00: 00 Yes [id number] 25mg Insert 1 Suppositor y into rectum every 4 (four) hours as needed for Nausea and Vomiting (N/V) for up to 6 doses. [facility] metoclopram alea HCl 10 mg tablet 11-29 00:00: 00 Yes [id number] 10mg Take 1 tablet by mouth every 6 (six) hours. [facility] ciprofloxac in 500 mg tablet Take 1 tablet every 12 hours by oral route for 5 days. ciprofloxac in 500 mg tablet Take 1 tablet every 12 hours by oral route for 5 days. No 1 Q12H ciprofloxa ayad 500 mg tablet Take 1 tablet every 12 hours by oral route for 5 days. [facility] ondansetron 4 mg disintegrat ing tablet Place [...] al route as needed. FOR NAUSEA/VOM ITING [facility] Vital Signs Vital Name Observation Time Observation Value Comments S ource BP Diastolic 2022-09-11 00:00:00 78 mm[Hg] [facility] Height 2022-09-11 00:00:00 62 [in_i] [facility] BMI (Body Mass Index) 2022-09-11 00:00:00 31.8 kg/m2 [facility] BP Systolic 2022-09-11 00:00:00 120 mm[Hg] [facility] Body Weight 2022-09-11 00:00:00 2777.6 [oz_av] [facility] Systolic blood pressure 2019-09-25 20:58:00 143 mm[Hg] [place] [facility] Diastolic blood pressure 2019-09-25 20:58:00 89 mm[Hg] [facility] Heart rate 2019-09-25 20:58:00 81 /min Unive [facility] Respiratory rate 2019-09-25 20:58:00 12 /min [facility] Oxygen saturation in Arterial blood by Pulse oximetry 2019-09-25 20:58:00 100 /min [facility] Body temperature 2019-09-25 17:55:00 36.78 Jessica [facility] Body height 2019-09-25 17:52:00 157.5 cm [facility] Body weight 2019-09-25 17:52:00 63.504 kg [facility] BMI 2019-09-25 17:52:00 25.61 kg/m2 [facility] Systolic blood pressure 2019-08-13 13:00:00 99 mm[Hg] [facility] Diastolic blood pressure 2019-08-13 13:00:00 62 mm[Hg] [facility] Heart rate 2019-08-13 13:00:00 60 /min [facility] Respiratory rate 2019-08-13 13:00:00 15 /min [facility] Oxygen saturation in Arterial blood by Pulse oximetry 2019-08-13 13:00:00 98 /min [facility] Body temperature 2019-08-13 10:28:49 35.83 Jessica [facility] Body weight 2019-08-13 10:26:00 68.04 kg [facility] Procedures Procedure Date / Time Performed Performing Clinician Source URINALYSIS 2019-09-25 20:29:00 [facility] XR KUB 2019-09-25 20:08:31 [facility] LIPASE 2019-09-25 18:15:00 [facility] TEST, SERUM 2019-09-25 18:15:00 Thalia Moraes [facility] TROPONIN I 2019-09-25 18:15:00 [facility] COMP. METABOLIC PANEL ([id number]) 2019-09-25 18:15:00 Charles Moraes [facility] ETHANOL 2019-09-25 18:15:00 Charles Moraes [facility] CBC WITH DIFFERENTIAL 2019-09-25 18:15:00 Thalia Moraes [facility] CONSENT/REFUSAL FOR DIAGNOSIS AND TREATMENT 2019-09-25 17:43:43 Doctor Unassigned, [place] [facility] CT ABDOMEN PELVIS WO CONTRAST 2019-08-13 11:55:51 Kush Hubbard [facility] NOTICE OF PRIVACY PRACTICES 2019-08-13 10:58:34 Doctor Unassigned, [place] [facility] LIPASE 2019-08-13 10:40:00 Kush Hubbard [facility] COMP. METABOLIC PANEL ([id number]) 2019-08-13 10:40:00 Kush Hubbard [facility] CBC WITH DIFFERENTIAL 2019-08-13 10:40:00 Kush Hubbard [facility] URINALYSIS 2019-08-13 10:40:00 Kush Hubbard [facility] POCT TEST 2019-08-13 10:40:00 Kush Hubbard [facility] CONSENT/REFUSAL FOR DIAGNOSIS AND TREATMENT 2019-08-13 10:13:09 Doctor Unassigned, [place] [facility] Plan of Care Planned Activity Planned Date Details Comments Source Diagnostic Test Pending 2022-09-11 00:00:00 urinalysis, dipstick [code = urinalysis, dipstick] [facility] Instructions [facility] Encounters Start Date/Time End Date/Time Encounter Type Admission Type Attending Clinicians Care Facility Care Department Encounter ID Source 2022-09-11 00:00:00 2022-09-11 00:00:00 Outpatient L_Enrico [facility] [id number] [facility] 2022-09-11 00:00:00 2022-09-11 00:00:00 Kelsey Weston APRN, MSN, KETTLE GIRL-BC: [address], [address], [place] [address] , Ph. [facility] [id number] [facility] 2022-09-10 00:00:00 2022-09-10 00:00:00 Outpatient Abby [facility] [id number] [facility] 2019-09-25 12:02:36 2019-09-25 15:40:00 Emergency Charles Moraes [facility] [id number] [facility] 2019-09-25 12:02:36 2019-09-25 15:40:00 Emergency X [facility] ERT [id number] [facility] 2019-08-13 04:20:37 2019-08-13 07:37:00 Emergency Kush Hubbard [facility] [id number] [facility] Results Test Description Test Time Test Comments Results Result Co mments Source [facility]2020-02-28 20:52:00* Test Item Value Reference Range Interpretation Comme nts APPEARANCE (test code = 0425167564) Clear Clear COLOR (test code = 6883277979) Yellow Yellow PH (test code = 7087444995) 4.8-8.0 SP GRAVITY (test code = 7285243695) 1.003-1.030 GLU U QUAL (test code = 7593573088) Normal Normal BLOOD (test code = 9766360685) 1+ Negative A KETONES (test code = 5959382756) 20 mg/dL Negative A PROTEIN (test code = 2887-8) Negative Negative UROBILIN (test code = 8384623441) Normal Normal BILIRUBIN (test code = 9380369289) Negative Negative NITRITE (test code = 3865042060) Negative Negative LEUK VIVIEN (test code = 3989739267) Negative Negative RBC/HPF (test code = 9374957913) See_Comment H [Automated messa ge] The system which generated this result transmitted reference range: 0 - 3 HPF. The reference range was not used to interpret this result as normal/abnormal. WBC/HPF (test code = 4914869166) See_Comment [Automated QBE] The system which generated this result transmitted reference range: 0 - 5 HPF. The reference range was not used to interpret this result as normal/abnormal. BACTERIA (test code = 8456497424) Few Negative A MUCOUS (test code = 2953212485) Slight Negative LPF A SQ EPITH (test code = 7442849465) HPF HYAL CAST (test code = 1759564673) See_Comment [Automated QBE] The system which generated this result transmitted reference range: <=2 LPF. The reference range was not used to interpret this result as normal/abnormal. Lab Interpretation (test code = 81530-2) Abnormal [facility] [id number] 20:44:12No acute radiographic abnormality.EXAM: XR KUB HISTORY: [...] rightupper quadrant and right pelvis.IMPRESSIONNo acute radiographic abnormality.[facility]2020-02-28 19:09:00* Test Item Value Reference Range Interpretation Comme nts ALCOHOL (test code = 8056112163) <10 mg/dL SANJUANITA (test code = SANJUANITA) <10 [id number] Toxic>100 Depression of [employer]ORM [employer] OFFIC[employer]>400 Fatalities Reported [facility] TEST, [id number] 18:54:00* Test Item Value Reference Range Interpretation Comme nts PREG SERUM (test code = 7966999329) Negative SANJUANITA (test code = SANJUANITA) Less than 10 IU/L. ?If low titer or ectopic is suspected, resubmit specimen in 48-72 hours. [facility]. METABOLIC PANEL ([id number])2019-09-25 18:45:00* Test Item Value Reference Range Interpretation Comme nts NA (test code = 9395032220) 141 mmol/L 135-145 K (test code = 1501452366) 3.7 mmol/L 3.5-5 CL (test code = 5859520136) 107 mmol/L 98-108 CO2 TOTAL (test code = 9205839598) 27 mmol/L 23-31 AGAP (test code = 6582938578) 2-16 BUN (test code = 1291715870) 11 mg/dL 7-23 GLUCOSE (test code = 9784607305) 134 mg/dL 70-110 H CREATININE (test code = 5430186047) 0.51 mg/dL 0.5-1.04 TOTAL BILI (test code = 6286154632) 0.3 mg/dL 0.1-1.1 CALCIUM (test code = 6001399564) 9.7 mg/dL 8.6-10.6 T PROTEIN (test code = 8197218975) 7.9 g/dL 6.3-8.2 ALBUMIN (test code = 0241004833) 5.0 g/dL 3.5-5 ALK PHOS (test code = 0800762419) 68 U/L 34-122 ALTv (test code = 1742-6) 16 U/L 5-35 AST(SGOT) (test code = 1919797348) 30 U/L 13-40 eGFR Calculation (Non-) (test code = 5259465311) mL/min/1.73m2 eGFR Calculation () (test code = 9162255613) mL/min/1.73m2 SANJUANITA (test code = SANJUANITA) Association [...] imaging tests). Lab Interpretation (test code = 18183-1) Abnormal [facility]2020-02-28 18:45:00* Test Item Value Reference Range Interpretation Comme [facility] LIPASE (test code = 7478466876) 47 U/L 0-220 Lab Interpretation (test cod e = 51796-5) Normal [facility]CBC WITH [id number] 18:34:00* Test Item Value Reference Range Interpretation [...] 34.2 g/dL 31.6-35.1 RDW-SD (test code = 64915-4) 41.9 fL 39-49.9 RDW-CV (test code = 788-0) 12.1 % 12-15.5 PLT (test code = 777-3) See_Comment [Automated message] The system which generated this result transmitted reference range: 166 - 358 10*3/?L. The reference range was not used to interpret this result as normal/abnormal. MPV (test code = 52079-1) 10.3 fL 9.5-12.9 NRBC/100 WBC (test code = 4921827568) See_Comment [Automated message] The system which generated this result transmitted reference range: 0.0 - 10.0 /100 WBCs. The reference range was not used to interpret this result as normal/abnormal. NRBC x10^3 (test code = 1198580710) <0.01 See_Comment [Automated message] The system which generated this result transmitted reference range: 10*3/?L. The reference range was not used to interpret this result as normal/abnormal. GRAN MAT (NEUT) % (test code = 770-8) 90.5 % IMM GRAN % (test code = 6862774429) 0.30 % LYMPH % (test code = 736-9) 7.6 % MONO % (test code = 5905-5) 1.3 % EOS % (test code = 713-8) 0.0 % BASO % (test code = 706-2) 0.3 % GRAN MAT x10^3(ANC) (test code = 0944205612) 11.51 10*3/uL 1.88-7.09 H IMM GRAN x10^3 (test code = 6491077129) 0.04 10*3/uL 0-0.06 LYMPH x10^3 (test code = 731-0) 0.97 10*3/uL 1.32-3.29 L MONO x10^3 (test code = 742-7) 0.16 10*3/uL 0.33-0.92 L EOS x10^3 (test code = 711-2) <0.03 0.03-0.39 L BASO x10^3 (test code = 704-7) 0.04 10*3/uL 0.01-0.07 Lab Interpretation (test code = 01526-3) Abnormal [facility] PELVIS WO [id number] 12:03:221. Evaluation of the bowel limited by the lack of oral and IV contrast.There does, however, appear to be subtle fat stranding adjacent to thedistal ileum extending to the terminal ileum. Findings suspicious for aninfectious or inflammatory enteritis. 2. No renal or ureteral stones. No hydronephrosis. RL: [id number]: [id number] End of Report EXAM: CT ABDOMEN PELVIS WO CONTRAST ORDERING PHYSICIAN: ? ?KUSH HART HISTORY: Abdominal Pain.COMPARISON: none TECHNIQUE: CT [...] renal or ureteral stones. No hydronephrosis.RL: 3901AFC: 50362Rll of Report [facility] Vahekyxhbc3600-09-31 11:25:00* Test Item Value Reference Range Interpretation Comme nts APPEARANCE (test code = 1123593081) Cloudy Clear A COLOR (test code = 7732214752) Yellow Yellow PH (test code = 6432513361) 4.8-8.0 SP GRAVITY (test code = 7850734570) 1.003-1.030 GLU U QUAL (test code = 4673365771) Normal Normal BLOOD (test code = 1720777598) 1+ Negative A KETONES (test code = 9582906738) Negative Negative PROTEIN (test code = 2887-8) Negative Negative UROBILIN (test code = 0440966240) Normal Normal BILIRUBIN (test code = 7518117016) Negative Negative NITRITE (test code = 0541050726) Negative Negative LEUK VIVIEN (test code = 7573327499) 25/uL Negative A RBC/HPF (test code = 0922560679) See_Comment H [Automated messa ge] The system which generated this result transmitted reference range: 0 - 3 HPF. The reference range was not used to interpret this result as normal/abnormal. WBC/HPF (test code = 6371616648) See_Comment H [Automated messa ge] The system which generated this result transmitted reference range: 0 - 5 HPF. The reference range was not used to interpret this result as normal/abnormal. BACTERIA (test code = 2266432306) Few Negative A MUCOUS (test code = 3670926639) Slight Negative LPF A AMORPHOUS (test code = 5658878707) Moderate Rare HPF A SQ EPITH (test code = 0156808594) HPF Lab Interpretation (test code = 11815-5) Abnormal [facility]Complete Metabolic [id number] 11:12:00* Test Item Value Reference Range Interpretation Comme nts NA (test code = 0295281977) 142 mmol/L 135-145 K (test code = 2611967416) 4.1 mmol/L 3.5-5 CL (test code = 4646840682) 106 mmol/L 98-108 CO2 TOTAL (test code = 2960710829) 27 mmol/L 23-31 AGAP (test code = 0363288553) 2-16 BUN (test code = 4125364500) 16 mg/dL 7-23 GLUCOSE (test code = 9188334055) 120 mg/dL 70-110 H CREATININE (test code = 1433433248) 0.71 mg/dL 0.5-1.04 TOTAL BILI (test code = 7683240655) 0.2 mg/dL 0.1-1.1 CALCIUM (test code = 7381833228) 9.7 mg/dL 8.6-10.6 T PROTEIN (test code = 9110462527) 7.6 g/dL 6.3-8.2 ALBUMIN (test code = 4322575724) 4.6 g/dL 3.5-5 ALK PHOS (test code = 6166456687) 61 U/L 34-122 ALTv (test code = 1742-6) 14 U/L 5-35 AST(SGOT) (test code = 7494113205) 26 U/L 13-40 eGFR Calculation (Non-) (test code = 0543992272) mL/min/1.73m2 eGFR Calculation () (test code = 9478580350) mL/min/1.73m2 SANJUANITA (test code = SANJUANITA) Association [...] imaging tests). Lab Interpretation (test code = 33261-2) Abnormal [facility]lands[facility], [id number] 11:11:00* Test Item Value Reference Range Interpretation Comme nts LIPASE (test code = 5853130695) 176 U/L 0-220 Lab Interpretation (test cod e = 74728-2) Normal [facility] WITH [id number] 10:52:00* Test Item Value Reference Range Interpretation [...] 32.5 g/dL 31.6-35.1 RDW-SD (test code = 30050-4) 43.1 fL 39-49.9 RDW-CV (test code = 788-0) 12.0 % 12-15.5 PLT (test code = 777-3) See_Comment [Automated message] The system which generated this result transmitted reference range: 166 - 358 10*3/?L. The reference range was not used to interpret this result as normal/abnormal. MPV (test code = 79362-4) 11.2 fL 9.5-12.9 NRBC/100 WBC (test code = 1281320846) See_Comment [Automated message] The system which generated this result transmitted reference range: 0.0 - 10.0 /100 WBCs. The reference range was not used to interpret this result as normal/abnormal. NRBC x10^3 (test code = 2184501140) <0.01 See_Comment [Automated message] The system which generated this result transmitted reference range: 10*3/?L. The reference range was not used to interpret this result as normal/abnormal. GRAN MAT (NEUT) % (test code = 770-8) 79.5 % IMM GRAN % (test code = 6230785577) 0.40 % LYMPH % (test code = 736-9) 15.0 % MONO % (test code = 5905-5) 4.2 % EOS % (test code = 713-8) 0.6 % BASO % (test code = 706-2) 0.3 % GRAN MAT x10^3(ANC) (test code = 4226404556) 10.10 10*3/uL 1.88-7.09 H IMM GRAN x10^3 (test code = 2212871560) 0.05 10*3/uL 0-0.06 LYMPH x10^3 (test code = 731-0) 1.91 10*3/uL 1.32-3.29 MONO x10^3 (test code = 742-7) 0.53 10*3/uL 0.33-0.92 EOS x10^3 (test code = 711-2) 0.07 10*3/uL 0.03-0.39 BASO x10^3 (test code = 704-7) 0.04 10*3/uL 0.01-0.07 Lab Interpretation (test code = 67424-7) Abnormal [facility] [id number] 10:40:00* Test Item Value Reference Range Interpretation Comme nts POCT PREG (test code = 1605) negative On board controls acceptable with C Line (test code = 3574) present POCT PREG LOT # (test code = 3575) POCT PREG TEST DATE ( test code = 3576) 02-25-2021 Lab Interpretation (test cod e = 50237-8) Normal [facility]"
[2024-06-08] MEDS ORDERED: MORPHINE 4 MG/ML SYR ONE (07:39)
[2024-06-08] MEDS ORDERED: ONDANSETRON 4 MG/2 ML VIAL ONE (07:39)
[2024-06-08] MEDS ORDERED: FAMOTIDINE 20 MG/2 ML VIAL IV ONE (07:40)
[2024-06-08 07:51] LABS: Absolute Basophils 0.1 K/uL (0-0.5); Absolute Eosinophils 0.1 K/uL (0-0.5); Absolute Lymphocytes (CBC) 1.4 K/uL (0.7-4.9); Absolute Monocytes 0.2 K/uL (0.1-1.3); Absolute Neutrophil 4.1 K/uL (1.8-8.0); Basophils % 0.9 % (0-1.3); Eosinophils % 2.1 % (0-4.4); Hemoglobin 12.9 g/dL (12.0-15.0); Lymphocytes % 24.2 % (15.3-44.8); MCH 33.1 pg (27.0-35.0); MCV 97.3 fL (80-100); MPV 8.4 fL (7.6-11.3); Monocytes % 4.1 % (3.3-12.3); Neutrophils % 68.7 % (41.7-73.7); Nucleated Red Blood Cells % 0.1 % (0-0); Platelets 234 thou/uL (152-406); Red Cell Distribution Width 13.9 % (12.1-15.2)
[2024-06-08 08:16] LABS: Albumin 4.1 g/dL (3.4-5.0); Albumin/Globulin Ratio 1.3 (1.1-1.8); Anion Gap 6.8 mEq/L (5.0-15.0); Bilirubin Total 0.3 mg/dL (0.2-1.0); Globulin 3.2 g/dL (2.3-3.5); Potassium 3.8 mEq/L (3.5-5.1); Protein, Total 7.3 g/dL (6.4-8.2)
--- NOTE | 2024-06-08 08:41 | RAD REPORT ---
EXAMINATION: CT ABDOMEN AND PELVIS WITH CONTRAST CLINICAL INDICATION: Female, 49 years old.ABD PAIN TECHNIQUE: CT abdomen and pelvis was performed, after the administration of IV contrast, [facility]. Axial, sagittal and coronal reconstructions were obtained. One or more of the following dose reduction techniques were used: Automated exposure control, adjustment of the mA and/o r kV according to patient size, and/or iterative reconstruction. Unless otherwise specified, incidental findings do not require dedicated imaging follow-up. [id number]. COMPARISON: No prior exam. FINDINGS: LOWER CHEST: The visualized lung bases are clear. LIVER: Subcentimeter low-density lesion in the posterior right hepatic lobe is too small to character ize but statistically benign. GALLBLADDER/BILE DUCT: Cholecystectomy. Intra and extrahepatic biliary duct dilatation. The common bi le duct measures up to 14 mm.? PANCREAS: Mild diffuse pancreatic duct dilatation. No mass or significant pancreatic atrophy. SPLEEN: Normal size. No focal lesion. ADRENALS: Normal; no mass. KIDNEYS AND URETERS: Normal size and contour. No hydronephrosis. GASTROINTESTINAL TRACT: Stomach is non-dilated. Small bowel has normal course and caliber. No colonic wall thickening or pericolonic inflammatory changes. Normal appendix. PERITONEUM: No ascites. LYMPH NODES: No lymphadenopathy. ABDOMINAL AORTA AND OTHER VESSELS: Normal caliber aorta and IVC. URINARY BLADDER: Mild bladder wall thickening. REPRODUCTIVE ORGANS: No pathologic process MUSCULOSKELETAL: No acute or suspicious osseous abnormality. ADDITIONAL FINDINGS: None. IMPRESSION: 1. Cholecystectomy. Intra and extrahepatic biliary duct dilatation which could be related to the post cholecystectomy state. Nevertheless, this is more than expected. Correlate with LFTs. MRCP could exclude cholelithiasis if clinically indicated. 2. Mild bladder wall thickening. Correlate for cystitis.
--- NOTE | 2024-06-08 09:03 | ER ---
Nurse's Notes [facility] Name: Brandi Felix Age: 49 yrs Sex: Female : 1975 Arrival Date: 06/08/2024 Time: 07:22 Bed 20 Private MD: Diagnosis: Right upper quadrant abdominal tenderness;Abnormal findings on diagnostic imaging of liver and biliary tract Presentation: 06/08 07:30 Chief complaint: Patient states: Upper abdominal pain with N/V started yesterday. No ll1 fever. Coronavirus screen: Client denies travel out of the [place] in the last 14 days. fatigue, nausea, vomiting. Client presents with at least one sign or symptom that may indicate coronavirus-19. Standard/surgical mask placed on the client. Ebola Screen: Patient denies travel to an Ebola-affected area in the 21 days before illness onset. Initial Sepsis Screen: Does the patient meet any 2 criteria? No. Patient's initial sepsis screen is negative. Does the patient have a suspected source of infection? No. Patient's initial sepsis screen is negative. Risk Assessment: Do you want to hurt yourself or someone else? Patient reports no desire to harm self or others. Onset of symptoms was June 07, 2024. 07:30 Method Of Arrival: Ambulatory ll1 07:30 Acuity: TERRENCE 3 ll1 Triage Assessment: 07:31 General: Appears distressed, uncomfortable, ill, Behavior is cooperative, appropriate ll1 for age, anxious. Pain: Complains of pain in abdomen Pain currently is 9 out of 10 on a pain scale. Quality of pain is described as aching, sharp, Pain began 1 day ago. Is intermittent, episodic. GI: Reports upper abdominal pain, nausea, vomiting. Historical: - Allergies: 07:29 No Known Allergies; ll1 - Home Meds: 07:29 Bactrim DS Oral [Active]; ll1 - PMHx: 07:29 None; ll1 - PSHx: 07:29 None; ll1 - Immunization history:: Adult Immunizations up to date. - Infectious Disease History:: Denies. - Social history:: Smoking status: Patient denies any tobacco usage or history of. - Family history:: not pertinent. - Hospitalizations: : No recent hospitalization is reported. Screenin:00 [facility] ED Fall Risk Assessment (Adult) History of falling in the last 3 months, bp including since admission No falls in past 3 months (0 pts) Confusion or Disorientation No (0 pts) Intoxicated or Sedated No (0 pts) Impaired Gait No (0 pts) Mobility Assist Device Used No (0 pt) Altered Elimination No (0 pt) Score/Fall Risk Level 0 - 2 = Low Risk. Abuse screen: Denies threats or abuse. Denies injuries from another. Nutritional screening: No deficits noted. Tuberculosis screening: No symptoms or risk factors identified. Assessment: 07:30 General: Appears in no apparent distress. uncomfortable, Behavior is cooperative, bp appropriate for age, anxious. 08:01 Reassessment: Patient and/or family updated on plan of care and expected duration. Pain rs5 level reassessed. Patient is alert, oriented x 3, equal unlabored respirations, skin warm/dry/pink. 09:00 Reassessment: Patient appears in no apparent distress at this time. Patient is alert, bp oriented x 3, equal unlabored respirations, skin warm/dry/pink. 09:38 GI: Bowel sounds present X 4 quads. Abd is soft X 4 quads. bp Vital Signs: 07:30 BP 147 / 79; Pulse 57; Resp 16; Temp 97.8; Pulse Ox 100% on R/A; Weight 71.67 kg; ll1 Height 5 ft. 2 in. ; Pain 9/10; 09:02 BP 114 / 82; Pulse 55; Resp 16; Pulse Ox 99% ; rs5 09:37 BP 108 / 82; Pulse 50; Resp 16; Pulse Ox 99% ; rs5 07:30 Body Mass Index 28.90 (71.67 kg, 157.48 cm) ll1 07:30 Pain Scale: Adult ll1 ED Course: 07:24 Patient arrived in ED. im 07:24 Arm band placed on Patient placed in an exam room, on a stretcher. ll1 07:28 Israel Prado MD is Attending Physician. rn 07:31 Triage completed. ll1 07:36 Elroy Avila, JOSHUA is Primary Nurse. rs5 07:43 Inserted saline lock: 20 gauge in right antecubital area, using aseptic technique. rs5 Blood collected. Flushed with 10 mL NS. 07:58 Attending Physician role handed off by Israel Prado MD gb1 07:58 Almita Lopez MD is Attending Physician. gb1 08:29 CT Abd/Pelvis - IV Contrast Only In Process Unspecified. EDMS 08:35 Provided Education on: discharge instructions . rs5 09:01 Neri Sheikh MD is Referral Physician. gb1 09:30 Patient has correct armband on for positive identification. rs5 09:38 No provider procedures requiring assistance completed. IV discontinued, intact, bp bleeding controlled, No redness/swelling at site. Pressure dressing applied. Administered Medications: 07:44 Drug: Famotidine IVP 20 mg IVP once; dilute with 10 mL 0.9% NaCl; give over 2 minutes bp Route: IVP; Site: right antecubital; 09:04 Follow up: Response: No adverse reaction bp 07:44 Drug: Ondansetron IVP 4 mg IVP once; over 2 minutes Route: IVP; Site: right antecubital;bp 09:05 Follow up: Response: No adverse reaction bp 07:44 Drug: morphine IVP or IV 4 mg IVP once over 4 mins Route: IVP; Infused Over: 4 mins; bp Site: right antecubital; 09:05 Follow up: Response: No adverse reaction bp Medication: 09:00 VIS not applicable for this client. bp Outcome: 09:02 Discharge ordered by . gb1 09:38 Discharged to home ambulatory, with family, bp 09:38 Condition: stable 09:38 Discharge instructions given to patient, Instructed on discharge instructions, follow up and referral plans. medication usage, Demonstrated understanding of instructions, follow-up care, medications, Prescriptions given X 1, 09:38 Patient left the ED. bp Signatures: Dispatcher [employer] EDMS Israel Prado MD MD rn Peltier, Brian RN RN bp Renaldo Monte RN RN ll1 Elroy Avila RN RN rs5 Dania Steen Gina, MD MD gb1 Corrections: (The following items were deleted from the chart) 18:54 09:00 Patient has correct armband on for positive identification. bp rs5 18:55 09:02 BP 114 / 82; Pulse 46bpm; Resp 16bpm; Pulse Ox 99%; bp rs5 18:55 09:37 BP 108 / 82; Pulse 44bpm; Resp 16bpm; Pulse Ox 99%; bp rs5
--- NOTE | 2024-06-08 09:03 | EDPHYS ---
Physician Documentation [facility] Name: Brandi Felix Age: 49 yrs Sex: Female : 1975 Arrival Date: 06/08/2024 Time: 07:22 Bed 20 Private MD: ED Physician Almita Lopez HPI: 06/08 07:37 This 49 yrs old Female presents to ER via Ambulatory with complaints of rn Abdominal Pain, Vomiting. 07:37 The patient presents to the emergency department with nausea, vomiting, abdominal pain. rn Onset: The symptoms/episode began/occurred last night. Possible causes: unknown. The symptoms are aggravated by nothing. The symptoms are alleviated by nothing. Severity of symptoms: At their worst the symptoms were moderate in the emergency department the symptoms are unchanged. The patient has experienced similar episodes in the past. Patient reports Right upper quadrant and epigastric abdominal pain that began last night. Has had this intermittently. Has already had gallbladder removed. Has a history of gastritis and acid reflux. Reports vomiting dark black substance with some red in it.. Historical: - Allergies: 07:29 No Known Allergies; ll1 - Home Meds: 07:29 Bactrim DS Oral [Active]; ll1 - PMHx: 07:29 None; ll1 - PSHx: 07:29 None; ll1 - Immunization history:: Adult Immunizations up to date. - Infectious Disease History:: Denies. - Social history:: Smoking status: Patient denies any tobacco usage or history of. - Family history:: not pertinent. - Hospitalizations: : No recent hospitalization is reported. ROS: 07:37 Constitutional: Negative for fever, chills, and weight loss, Cardiovascular: Negative rn for chest pain, palpitations, and edema, Respiratory: Negative for shortness of breath, cough, wheezing, and pleuritic chest pain, Abdomen/GI: Positive for upper abdominal pain with nausea and vomiting Exam: 07:37 Constitutional: This is a well developed, well nourished patient who is awake, alert, rn tearful and appears uncomfortable Cardiovascular: Bradycardic, regular Abdomen/GI: Soft, epigastric and right upper quadrant tenderness. No rebound or guarding Vital Signs: 07:30 BP 147 / 79; Pulse 57; Resp 16; Temp 97.8; Pulse Ox 100% on R/A; Weight 71.67 kg; ll1 Height 5 ft. 2 in. ; Pain 9/10; 09:02 BP 114 / 82; Pulse 55; Resp 16; Pulse Ox 99% ; rs5 09:37 BP 108 / 82; Pulse 50; Resp 16; Pulse Ox 99% ; rs5 07:30 Body Mass Index 28.90 (71.67 kg, 157.48 cm) ll1 07:30 Pain Scale: Adult ll1 MDM: 07:28 Medical Screening Exam initiated rn 08:57 ED course: 49-year-old female received in turnover from Dr. Prado pending CT scan of gb1 the abdomen pelvis shows intraductal pancreatic and biliary dilation with findings of a status post a cholecystectomy. I discussed the findings with the patient and recommended MRCP with emergent gastroenterology evaluation as an inpatient and the patient adamantly requested to go home. With shared decision making I did give her instructions for medications and follow-up with gastroenterology as an outpatient for an upper endoscopy as well as an MRCP. Patient is compliant with this plan of care and is p.o. tolerant prior to leaving home today. Her pain is now a 0 out of 10.. 09:18 Data reviewed: vital signs, nurses notes. gb1 06/08 07:33 Order name: CBC with Diff; Complete Time: 07:58 rn 06/08 07:33 Order name: CMP; Complete Time: 08:18 rn 06/08 07:33 Order name: Lipase; Complete Time: 08:18 rn 06/08 07:33 Order name: CT Abd/Pelvis - IV Contrast Only; Complete Time: 08:43 rn 06/08 07:33 Order name: IV Saline Lock; Complete Time: 07:43 rn 06/08 07:33 Order name: Labs collected and sent; Complete Time: 07:43 rn Administered Medications: 07:44 Drug: Famotidine IVP 20 mg IVP once; dilute with 10 mL 0.9% NaCl; give over 2 minutes bp Route: IVP; Site: right antecubital; 09:04 Follow up: Response: No adverse reaction bp 07:44 Drug: Ondansetron IVP 4 mg IVP once; over 2 minutes Route: IVP; Site: right antecubital;bp 09:05 Follow up: Response: No adverse reaction bp 07:44 Drug: morphine IVP or IV 4 mg IVP once over 4 mins Route: IVP; Infused Over: 4 mins; bp Site: right antecubital; 09:05 Follow up: Response: No adverse reaction bp Disposition Summary: 06/08/24 09:02 Discharge Ordered Notes: Location: Home gb1 Condition: Stable gb1 Diagnosis - Right upper quadrant abdominal tenderness gb1 - Abnormal findings on diagnostic imaging of liver and biliary tract gb1 Followup: gb1 - With: Neri Sheikh MD - When: 1 week - Reason: Further diagnostic work-up Discharge Instructions: - Discharge Summary Sheet gb1 - Abdominal Pain, Adult, [id number] gb1 - Incidental Abnormal Radiological Finding gb1 Forms: - Work release form ll1 - Medication Reconciliation Form gb1 - Antibiotic Education gb1 - Prescription Opioid Use gb1 - Patient Portal Instructions gb1 - Leadership Thank You Letter gb1 Prescriptions: - Carafate 1 gram Oral Tablet - take 1 tablet ORAL route 4 times per day take on an empty stomach, beginning on gb1 waking and last dose at bedtime; 100 tablet; Refills: 0, Product Selection Permitted - Protonix 40 mg Oral Tablet - take 1 tablet ORAL route once daily; 30 tablet; Refills: 0, Product Selection gb1 Permitted Signatures: Dispatcher [employer] Israel Liu MD MD rn Peltier, Brian RN RN Renaldo Mcfarlane RN RN 1 Almita Lopez MD MD gb1 Corrections: (The following items were deleted from the chart) 07:35 07:35 Abdomen Pelvis W Con+CT.RAD.BRZ ordered. EDMS EDMS
[2024-06-08 09:42] VITALS: TEMP 97.8
[2024-06-08 09:44] VITALS: O2SAT 99
[2024-06-08 09:45] VITALS: BP 108/82
== END 2024-06-08 09:38 | disposition home or self-care (01) ==
LOC: ER 07:22
DX: R10.811 Right upper quadrant abdominal tenderness (principal); R93.2 Abnormal findings on diagnostic imaging of liver and biliary tract
CPT/HCPCS: 36415; 74177; 80053; 83690; 85025; 96374; 96375; 99284; J2405; Q9967

== ENCOUNTER 2024-11-03 08:30 | Observation (INO) | payer SELFPAY ==
--- OUTSIDE RECORDS SUMMARY | 2024-11-03 08:34 | XMS REPORT | Continuity of Care Document ---
Author Name Unknown Address [address] [facility] [address] [place] [address] [facility] Address [address] [facility] [place] [address] Care Team Providers Care Molecular Geneticist Name Role Phone PCP, PATIENT DOES NOT HAVE A Primary Care Physic federico Unavailable Abby Attending Clinician Unavailable Charles Almanza Attending Clinician [phone] CHARLES MORAES Attending Clinician Unavailable Kush Hubbard MD Attending Clinician [phone] L_Enrico Admitting Clinician Unavailable CHARLES MORAES Admitting Clinician Unavailable Payers Payer Name Policy Type Policy Number Effective Date Expirati on Date Source Problems Condition Name Condition Details Condition Category Status Onset Date Resolution Date Last Treatment Date Treating Clinician Comments Source Nausea and vomiting Nausea and Vomiting Problem Active 09-11 00:00: 00 [facility] Acute urinary tract infection Acute Urinary Tract Infection Problem Active 09-11 00:00: 00 [facility] Dizziness Dizziness Problem Active 09-11 00:00: 00 [facility] Vertigo Vertigo Problem Active 09-11 00:00: 00 [facility] No known active problems No known active problems Disease [facility] Allergies, Adverse Reactions, Alerts Allergy Name Allergy Type Status Severity Reaction(s) Onset Date Inactive Date Treating Clinician Comments Source NO KNOWN ALLERGIE S Drug Class Active [facility] Social History Social Habit Start Date Stop Date Quantity Comments Source Sex Assigned At [facility] Smoking Status Start Date Stop Date Source Former Smoker [facility] Unknown if ever smoked [facility] Medications Ordered Medication Name Filled Medication Name Start Date Stop Date Current Medication? Ordering Clinician Indication Dosage Frequency Signature (SIG) Comments Components Source NaCl 0.9% (NS) bolus infusion 1,000 mL 09-25 20:15: 09-25 20:30 :00 No 1000mL at 999 mL/hr, 1,000 mL, IV Infusion, ONCE, 1 dose, 09/25/19 at 1415, STAT [facility] famotidine (PEPCID (PF)) injection 20 mg 09-25 20:15: 00 09-25 19:27 :00 No 20mg 20 mg, Slow IV Push, ONCE, 1 dose, 09/25/19 at 1415, [facility] ondansetron (ZOFRAN (PF)) injection 4 mg 09-25 20:15: 00 09-25 19:26 :00 No 4mg 4 mg, Slow IV Push, ONCE, 1 dose, 09/25/19 at 1415, [facility] proMETHazin e (PHENERGAN) 25 mg in NaCl 0.9% (NS) 50 mL piggyback 09-25 19:15: 09-25 18:15 :00 No 25mg 25 mg, IV Piggyback, ONCE, 1 dose, 09/25/19 at 1315, 50 mL [facility] NaCl 0.9% (NS) bolus infusion 1,000 mL 09-25 19:15: 09-25 19:08 :00 No 1000mL at 999 mL/hr, 1,000 mL, IV Infusion, ONCE, 1 dose, 09/25/19 at 1315, STAT [facility] proMETHazin e 25 mg tablet 09-25 00:00: 00 Yes [id number] 12.5mg Take 0.5 tablets by mouth every 6 (six) hours as needed for Nausea and Vomiting (N/V). [facility] proMETHazin e (PHENERGAN) 25 mg in NaCl 0.9% (NS) 50 mL piggyback 08-13 13:00: 00 08-13 13:00 :00 No 25mg 25 mg, IV Piggyback, ONCE, 1 dose, Lenore 08/13/19 at 0700, 50 mL [facility] ondansetron (ZOFRAN (PF)) injection 4 mg 08-13 11:45: 00 08-13 10:39 :00 No 4mg 4 mg, Slow IV Push, ONCE, 1 dose, Lenore 08/13/19 at 0545, ZEN [facility] NaCl 0.9% (NS) bolus infusion 1,000 mL 08-13 11:45: 00 08-13 13:37 :00 No 1000mL at 999 mL/hr, 1,000 mL, IV Infusion, ONCE, 1 dose, Lenore 08/13/19 at 0545, STAT [facility] NaCl 0.9% (NS) bolus infusion 1,000 mL 08-13 10:45: 00 08-13 12:02 :00 No 1000mL at 999 mL/hr, 1,000 mL, IV Infusion, ONCE, 1 dose, Lenore 08/13/19 at 0445, ZEN [facility] acetaminoph en-codeine (TYLENOL-CO DEINE #3) 300-30 mg tablet 08-13 00:00: 00 Yes [id number] 1{tbl} Take 1 tablet by mouth every 6 (six) hours as needed for Pain (scale 4-6). [facility] ondansetron (ZOFRAN ODT) 4 mg disintegrat ing tablet 08-13 00:00: 00 Yes [id number] 4mg Take 1 tablet by mouth every 8 (eight) hours as needed for Nausea and Vomiting (N/V). [facility] proMETHazin e 25 mg suppository 01-17 00:00: 00 Yes [id number] 25mg Insert 1 Suppositor y into rectum every 4 (four) hours as needed for Nausea and Vomiting (N/V) for up to 6 doses. [facility] proMETHazin e 25 mg tablet 01-17 00:00: 00 Yes [id number] 25mg Take 1 tablet by mouth every 6 (six) hours as needed for Nausea and Vomiting (N/V). [facility] traMADOL (ULTRAM) 50 mg tablet 01-17 00:00: 00 Yes [id number] 50mg Take 1 tablet by mouth every 8 (eight) hours as needed for Pain (scale 4-6). [facility] metoclopram alea HCl 10 mg tablet 11-29 00:00: 00 Yes [id number] 10mg Take 1 tablet by mouth every 6 (six) hours. [facility] ciprofloxac in 500 mg tablet Take 1 tablet every 12 hours by oral route for 5 days. ciprofloxac in 500 mg tablet Take 1 tablet every 12 hours by oral route for 5 days. No 1 Q12H ciprofloxa ayad 500 mg tablet Take 1 tablet every 12 hours by oral route for 5 days. [facility] ondansetron 4 mg disintegrat ing tablet Place [...] al route as needed. FOR NAUSEA/VOM ITING [facility] Vital Signs Vital Name Observation Time Observation Value Comments S ource BP Diastolic 2022-09-11 00:00:00 78 mm[Hg] [facility] Height 2022-09-11 00:00:00 62 [in_i] [facility] BMI (Body Mass Index) 2022-09-11 00:00:00 31.8 kg/m2 [facility] BP Systolic 2022-09-11 00:00:00 120 mm[Hg] [facility] Body Weight 2022-09-11 00:00:00 2777.6 [oz_av] [facility] Systolic blood pressure 2019-09-25 20:58:00 143 mm[Hg] [facility] Diastolic blood pressure 2019-09-25 20:58:00 89 mm[Hg] [facility] Heart rate 2019-09-25 20:58:00 81 /min [facility] Respiratory rate 2019-09-25 20:58:00 12 /min [facility] Oxygen saturation in Arterial blood by Pulse oximetry 2019-09-25 20:58:00 100 /min [facility] Body temperature 2019-09-25 17:55:00 36.78 Jessica [facility] Body height 2019-09-25 17:52:00 157.5 cm [facility] Body weight 2019-09-25 17:52:00 63.504 kg [facility] BMI 2019-09-25 17:52:00 25.61 kg/m2 [facility] Systolic blood pressure 2019-08-13 13:00:00 99 mm[Hg] [facility] Diastolic blood pressure 2019-08-13 13:00:00 62 mm[Hg] [facility] Heart rate 2019-08-13 13:00:00 60 /min [facility] Respiratory rate 2019-08-13 13:00:00 15 /min [facility] Oxygen saturation in Arterial blood by Pulse oximetry 2019-08-13 13:00:00 98 /min [facility] Body temperature 2019-08-13 10:28:49 35.83 Jessica [facility] Body weight 2019-08-13 10:26:00 68.04 kg [facility] Procedures Procedure Date / Time Performed Performing Clinician Source URINALYSIS 2019-09-25 20:29:00 Charles Moraes [facility] XR KUB 2019-09-25 20:08:31 Charles Moraes [facility] LIPASE 2019-09-25 18:15:00 Charles Moraes [facility] TEST, SERUM 2019-09-25 18:15:00 Thalia Moraes [facility] TROPONIN I 2019-09-25 18:15:00 Charles Moraes [facility] COMP. METABOLIC PANEL ([id number]) 2019-09-25 18:15:00 Charles Moraes [facility] ETHANOL 2019-09-25 18:15:00 Charles Moraes [facility] CBC WITH DIFFERENTIAL 2019-09-25 18:15:00 Thalia Moraes [facility] CONSENT/REFUSAL FOR DIAGNOSIS AND TREATMENT 2019-09-25 17:43:43 Doctor Unassigned, [place] [facility] CT ABDOMEN PELVIS WO CONTRAST 2019-08-13 11:55:51 Kush Hubbard [facility] NOTICE OF PRIVACY PRACTICES 2019-08-13 10:58:34 Doctor Unassigned, [place] [facility] LIPASE 2019-08-13 10:40:00 Kush Hubbard [facility] COMP. METABOLIC PANEL ([id number]) 2019-08-13 10:40:00 Kush Hubbard [facility] CBC WITH DIFFERENTIAL 2019-08-13 10:40:00 Kush Hubbard [facility] URINALYSIS 2019-08-13 10:40:00 Kush Hubbard [facility] POCT TEST 2019-08-13 10:40:00 Kush Hubbard [facility] CONSENT/REFUSAL FOR DIAGNOSIS AND TREATMENT 2019-08-13 10:13:09 Doctor Unassigned, [place] [facility] Plan of Care Planned Activity Planned Date Details Comments Source Diagnostic Test Pending 2022-09-11 00:00:00 urinalysis, dipstick [code = urinalysis, dipstick] [facility] Instructions [facility] Encounters Start Date/Time End Date/Time Encounter Type Admission Type Attending [facility] Care Facility Care Department Encounter ID Source 2022-09-11 00:00:00 2022-09-11 00:00:00 Outpatient L_Enrico [facility] [id number] [facility] 2022-09-11 00:00:00 2022-09-11 00:00:00 Kelsey Weston APRN, MSN, FORENSIC ENGINEER-BC: [address], [address], [place] [address] , Ph. [facility] [id number] [facility] 2022-09-10 00:00:00 2022-09-10 00:00:00 Outpatient Abby [facility] [id number] [facility] 2019-09-25 12:02:36 2019-09-25 15:40:00 Emergency Charles Moraes [facility] [id number] [facility] 2019-09-25 12:02:36 2019-09-25 15:40:00 Emergency X [facility] [id number] [facility] 2019-08-13 04:20:37 2019-08-13 07:37:00 Emergency Kush Hubbard [facility] [id number] [facility] Results Test Description Test Time Test Comments Results Result Co mments Source [facility]2020-02-28 20:52:00* Test Item Value Reference Range Interpretation Comme nts APPEARANCE (test code = 2302043798) Clear Clear COLOR (test code = 6121381828) Yellow Yellow PH (test code = 9697082199) 4.8-8.0 SP GRAVITY (test code = 6277348605) 1.003-1.030 GLU U QUAL (test code = 1589167756) Normal Normal BLOOD (test code = 7339269219) 1+ Negative A KETONES (test code = 6641338553) 20 mg/dL Negative A PROTEIN (test code = 2887-8) Negative Negative UROBILIN (test code = 2911317094) Normal Normal BILIRUBIN (test code = 6387377762) Negative Negative NITRITE (test code = 1552801477) Negative Negative LEUK VIVIEN (test code = 7697454192) Negative Negative RBC/HPF (test code = 4485188091) See_Comment H [Automated messa ge] The system which generated this result transmitted reference range: 0 - 3 HPF. The reference range was not used to interpret this result as normal/abnormal. WBC/HPF (test code = 7655715286) See_Comment [Automated Dinner Lab] The system which generated this result transmitted reference range: 0 - 5 HPF. The reference range was not used to interpret this result as normal/abnormal. BACTERIA (test code = 8722939347) Few Negative A MUCOUS (test code = 8637126093) Slight Negative LPF A SQ EPITH (test code = 1116925215) HPF HYAL CAST (test code = 1194515893) See_Comment [Automated Dinner Lab] The system which generated this result transmitted reference range: <=2 LPF. The reference range was not used to interpret this result as normal/abnormal. Lab Interpretation (test code = 29280-3) Abnormal [facility] [id number] 20:44:12No acute radiographic abnormality.EXAM: XR KUB HISTORY: [...] rightupper quadrant and right pelvis.IMPRESSIONNo acute radiographic abnormality.[facility]2020-02-28 19:09:00* Test Item Value Reference Range Interpretation Comme nts ALCOHOL (test code = 4139671431) <10 mg/dL SANJUANITA (test code = SANJUANITA) <10 Kaiskxfz61-737 Toxic>100 Depression of TRAM OPERATOR>400 Fatalities Reported [facility] TEST, [id number] 18:54:00* Test Item Value Reference Range Interpretation Comme nts PREG SERUM (test code = 0313249648) Negative SANJUANITA (test code = SANJUANITA) Less than 10 IU/L. ?If low titer or ectopic is suspected, resubmit specimen in 48-72 hours. [facility]. METABOLIC PANEL (52077)2019-09-25 18:45:00* Test Item Value Reference Range Interpretation Comme nts NA (test code = 7876782935) 141 mmol/L 135-145 K (test code = 8494710940) 3.7 mmol/L 3.5-5 CL (test code = 1735354143) 107 mmol/L 98-108 CO2 TOTAL (test code = 3448146050) 27 mmol/L 23-31 AGAP (test code = 4359078438) 2-16 BUN (test code = 0830396157) 11 mg/dL 7-23 GLUCOSE (test code = 1761682954) 134 mg/dL 70-110 H CREATININE (test code = 4491301316) 0.51 mg/dL 0.5-1.04 TOTAL BILI (test code = 3130668773) 0.3 mg/dL 0.1-1.1 CALCIUM (test code = 9546607980) 9.7 mg/dL 8.6-10.6 T PROTEIN (test code = 9050740539) 7.9 g/dL 6.3-8.2 ALBUMIN (test code = 9178005797) 5.0 g/dL 3.5-5 ALK PHOS (test code = 8312708817) 68 U/L 34-122 ALTv (test code = 1742-6) 16 U/L 5-35 AST(SGOT) (test code = 9020711939) 30 U/L 13-40 eGFR Calculation (Non-) (test code = 1580922328) mL/min/1.73m2 eGFR Calculation () (test code = 2480496038) mL/min/1.73m2 SANJUANITA (test code = SANJUANITA) Association [...] imaging tests). Lab Interpretation (test code = 15332-1) Abnormal [facility]IP[facility]2020-02-28 18:45:00* Test Item Value Reference Range Interpretation Comme [facility] LIPASE (test code = 0662344023) 47 U/L 0-220 Lab Interpretation (test cod e = 66530-0) Normal [facility] WITH [id number] 18:34:00* Test Item Value Reference Range Interpretation [...] 34.2 g/dL 31.6-35.1 RDW-SD (test code = 78386-3) 41.9 fL 39-49.9 RDW-CV (test code = 788-0) 12.1 % 12-15.5 PLT (test code = 777-3) See_Comment [Automated message] The system which generated this result transmitted reference range: 166 - 358 10*3/?L. The reference range was not used to interpret this result as normal/abnormal. MPV (test code = 56965-3) 10.3 fL 9.5-12.9 NRBC/100 WBC (test code = 4183776810) See_Comment [Automated message] The system which generated this result transmitted reference range: 0.0 - 10.0 /100 WBCs. The reference range was not used to interpret this result as normal/abnormal. NRBC x10^3 (test code = 2745977145) <0.01 See_Comment [Automated message] The system which generated this result transmitted reference range: 10*3/?L. The reference range was not used to interpret this result as normal/abnormal. GRAN MAT (NEUT) % (test code = 770-8) 90.5 % IMM GRAN % (test code = 1916113533) 0.30 % LYMPH % (test code = 736-9) 7.6 % MONO % (test code = 5905-5) 1.3 % EOS % (test code = 713-8) 0.0 % BASO % (test code = 706-2) 0.3 % GRAN MAT x10^3(ANC) (test code = 8781475416) 11.51 10*3/uL 1.88-7.09 H IMM GRAN x10^3 (test code = 3403916648) 0.04 10*3/uL 0-0.06 LYMPH x10^3 (test code = 731-0) 0.97 10*3/uL 1.32-3.29 L MONO x10^3 (test code = 742-7) 0.16 10*3/uL 0.33-0.92 L EOS x10^3 (test code = 711-2) <0.03 0.03-0.39 L BASO x10^3 (test code = 704-7) 0.04 10*3/uL 0.01-0.07 Lab Interpretation (test code = 58765-9) Abnormal [facility] ABD[facility] PELVIS WO [id number] 12:03:221. Evaluation of the bowel limited by the lack of oral and IV contrast.There does, however, appear to be subtle fat stranding adjacent to thedistal ileum extending to the terminal ileum. Findings suspicious for aninfectious or inflammatory enteritis. 2. No renal or ureteral stones. No hydronephrosis. RL: 3901AFC: [id number] End of Report EXAM: CT ABDOMEN PELVIS [...] renal or ureteral stones. No hydronephrosis.RL: 3901AFC: [id number] of Report [facility] [id number] 11:25:00* Test Item Value Reference Range Interpretation Comme nts APPEARANCE (test code = 1392114481) Cloudy Clear A COLOR (test code = 4984167454) Yellow Yellow PH (test code = 2453355085) 4.8-8.0 SP GRAVITY (test code = 4344303278) 1.003-1.030 GLU U QUAL (test code = 5299443692) Normal Normal BLOOD (test code = 6512652673) 1+ Negative A KETONES (test code = 2512489671) Negative Negative PROTEIN (test code = 2887-8) Negative Negative UROBILIN (test code = 4299891392) Normal Normal BILIRUBIN (test code = 0869181274) Negative Negative NITRITE (test code = 0256396369) Negative Negative LEUK VIVIEN (test code = 0615961848) 25/uL Negative A RBC/HPF (test code = 0005256180) See_Comment H [Automated messa ge] The system which generated this result transmitted reference range: 0 - 3 HPF. The reference range was not used to interpret this result as normal/abnormal. WBC/HPF (test code = 7638522130) See_Comment H [Automated messa ge] The system which generated this result transmitted reference range: 0 - 5 HPF. The reference range was not used to interpret this result as normal/abnormal. BACTERIA (test code = 6991550139) Few Negative A MUCOUS (test code = 1082751846) Slight Negative LPF A AMORPHOUS (test code = 5423960270) Moderate Rare HPF A SQ EPITH (test code = 7974979902) HPF Lab Interpretation (test code = 12641-4) Abnormal [facility] Campus[facility] Metabolic [id number] 11:12:00* Test Item Value Reference Range Interpretation Comme nts NA (test code = 0282831549) 142 mmol/L 135-145 K (test code = 4297105872) 4.1 mmol/L 3.5-5 CL (test code = 4186136757) 106 mmol/L 98-108 CO2 TOTAL (test code = 1578068158) 27 mmol/L 23-31 AGAP (test code = 0663504277) 2-16 BUN (test code = 4934513245) 16 mg/dL 7-23 GLUCOSE (test code = 7487400368) 120 mg/dL 70-110 H CREATININE (test code = 8088185588) 0.71 mg/dL 0.5-1.04 TOTAL BILI (test code = 4514116365) 0.2 mg/dL 0.1-1.1 CALCIUM (test code = 0819044950) 9.7 mg/dL 8.6-10.6 T PROTEIN (test code = 0801937667) 7.6 g/dL 6.3-8.2 ALBUMIN (test code = 7999384031) 4.6 g/dL 3.5-5 ALK PHOS (test code = 6440905407) 61 U/L 34-122 ALTv (test code = 1742-6) 14 U/L 5-35 AST(SGOT) (test code = 0115418608) 26 U/L 13-40 eGFR Calculation (Non-) (test code = 1369690386) mL/min/1.73m2 eGFR Calculation () (test code = 4996738321) mL/min/1.73m2 SANJUANITA (test code = SANJUANITA) Association [...] imaging tests). Lab Interpretation (test code = 61175-4) Abnormal [facility] CampusLipase, [id number] 11:11:00* Test Item Value Reference Range Interpretation Comme nts LIPASE (test code = 5478360740) 176 U/L 0-220 Lab Interpretation (test cod e = 85214-7) Normal [facility] WITH [id number] 10:52:00* Test Item Value Reference Range Interpretation [...] 32.5 g/dL 31.6-35.1 RDW-SD (test code = 77832-4) 43.1 fL 39-49.9 RDW-CV (test code = 788-0) 12.0 % 12-15.5 PLT (test code = 777-3) See_Comment [Automated message] The system which generated this result transmitted reference range: 166 - 358 10*3/?L. The reference range was not used to interpret this result as normal/abnormal. MPV (test code = 39664-0) 11.2 fL 9.5-12.9 NRBC/100 WBC (test code = 2556699759) See_Comment [Automated message] The system which generated this result transmitted reference range: 0.0 - 10.0 /100 WBCs. The reference range was not used to interpret this result as normal/abnormal. NRBC x10^3 (test code = 0325485123) <0.01 See_Comment [Automated message] The system which generated this result transmitted reference range: 10*3/?L. The reference range was not used to interpret this result as normal/abnormal. GRAN MAT (NEUT) % (test code = 770-8) 79.5 % IMM GRAN % (test code = 0795197245) 0.40 % LYMPH % (test code = 736-9) 15.0 % MONO % (test code = 5905-5) 4.2 % EOS % (test code = 713-8) 0.6 % BASO % (test code = 706-2) 0.3 % GRAN MAT x10^3(ANC) (test code = 4055520403) 10.10 10*3/uL 1.88-7.09 H IMM GRAN x10^3 (test code = 5534484575) 0.05 10*3/uL 0-0.06 LYMPH x10^3 (test code = 731-0) 1.91 10*3/uL 1.32-3.29 MONO x10^3 (test code = 742-7) 0.53 10*3/uL 0.33-0.92 EOS x10^3 (test code = 711-2) 0.07 10*3/uL 0.03-0.39 BASO x10^3 (test code = 704-7) 0.04 10*3/uL 0.01-0.07 Lab Interpretation (test code = 08037-2) Abnormal [facility] CampusPOCT [id number] 10:40:00* Test Item Value Reference Range Interpretation Comme nts POCT PREG (test code = 1605) negative On board controls acceptable with C Line (test code = 3574) present POCT PREG LOT # (test code = 3575) POCT PREG TEST DATE ( test code = 3576) 02-25-2021 Lab Interpretation (test cod e = 86906-5) Normal [facility]"
[2024-11-03] MEDS ORDERED: ONDANSETRON 4 MG/2 ML VIAL ONE (09:04)
[2024-11-03] MEDS ORDERED: MORPHINE 4 MG/ML SYR ONE (09:05)
[2024-11-03] MEDS ORDERED: MAGNES/ALUMIN/SIMET 30ML UCUP ONE (09:05)
[2024-11-03] MEDS ORDERED: NA CHLORIDE 0.9% 500 ML ONE (09:05)
[2024-11-03] MEDS ORDERED: FAMOTIDINE 20 MG/2 ML VIAL IV ONE (09:05)
[2024-11-03] MEDS ORDERED: LIDOCAINE VISCOUS 2% 10ML ORAL SOLN ONE (09:05)
[2024-11-03 09:34] LABS: Absolute Lymphocytes (CBC) 0.6 K/uL (0.7-4.9); Absolute Monocytes 0.2 K/uL (0.1-1.3); Absolute Neutrophil 6.7 K/uL (1.8-8.0); Basophils % 0.4 % (0-1.3); Hemoglobin 14.1 g/dL (12.0-15.0); Lymphocytes % 8.2 % (15.3-44.8); MCH 33.1 pg (27.0-35.0); MCHC 34.5 g/dL (32.0-36.0); MCV 96.1 fL (80-100); MPV 8.2 fL (7.6-11.3); Monocytes % 2.1 % (3.3-12.3); Neutrophils % 89.3 % (41.7-73.7); Platelets 257 thou/uL (152-406); RBC Red Blood Cell Count 4.26 M/uL (3.86-4.86); Red Cell Distribution Width 13.8 % (12.1-15.2)
[2024-11-03 09:51] LABS: Albumin 4.1 g/dL (3.4-5.0); Albumin/Globulin Ratio 1.2 (1.1-1.8); Anion Gap 8.9 mEq/L (5.0-15.0); Bilirubin Total 0.5 mg/dL (0.2-1.0); Globulin 3.5 g/dL (2.3-3.5); Potassium 3.9 mEq/L (3.5-5.1); Protein, Total 7.6 g/dL (6.4-8.2)
[2024-11-03 10:27] LABS: Blood Morphology Comment NOT SEEN (NOT SEEN); Platelet Estimate ADEQ; White Blood Cell Scan OK (OK)
--- NOTE | 2024-11-03 11:06 | RAD REPORT ---
EXAMINATION: CT Abdomen Pelvis W Contrast CLINICAL INDICATION: Female, 49 years old. upper abd pain TECHNIQUE: CT abdomen and pelvis was performed, after the administration of IV contrast, as per [facility] protocol. Axial, sagittal and coronal reconstructions were obtained. One or more of the following dose reduction techniques were used: Automated exposure control, adjustment of the mA and k V according to patient size, and iterative reconstruction. Unless otherwise specified, incidental findings do not require dedicated imaging follow-up. COMPARISON: 06/08/2024 FINDINGS: LOWER CHEST: The visualized lung bases are clear. LIVER: Normal in size and contour. No focal lesion. BILIARY SYSTEM: Status post cholecystectomy. Prominent caliber of the common bile duct, up to 1.4 cm, could relate to reservoir effect. SPLEEN: Normal size. No focal lesion. PANCREAS: No mass, or marybel-pancreatic fluid. Mild main duct dilation, to 4 mm. ADRENALS: Normal; no mass. KIDNEYS: Normal size and contour. No hydronephrosis. URINARY BLADDER: Unremarkable. GASTROINTESTINAL TRACT: Mild distention with air-fluid levels along the distal small bowel loops. Rel atively abrupt transition of bowel caliber in the left hemipelvis, see series 2 to image 57, with some recanalization within the segment of small bowel just proximal to this. Mild wall prominence and adjacent adventitial fat stranding of the involved small bowel segments. No evidence of free air, or localized abscess. Mild free pelvic ascites. APPENDIX: Normal appendix. LYMPH NODES: No lymphadenopathy. MUSCULOSKELETAL: No acute or suspicious osseous abnormality. ADDITIONAL FINDINGS: None. IMPRESSION: Distal small bowel wall prominence with adventitial fat stranding and, mild free fluid, which may rel ate to infectious or inflammatory enteritis. Segmental distal small bowel mild distention with relatively abrupt transition of bowel caliber the l eft hemipelvis, which may relate to ileus or low-grade obstruction.
--- NOTE | 2024-11-03 11:58 | EDPHYS ---
Physician Documentation [facility] Name: Brandi Felix Age: 49 yrs Sex: Female : 1975 Arrival Date: 11/03/2024 Time: 08:30 Bed 16 Private MD: ED Physician Israel Prado HPI: 11/03 08:58 This 49 yrs old Female presents to ER via Wheelchair with complaints of rn Abdominal Pain, Vomiting. 08:58 The patient presents to the emergency department with nausea, vomiting, abdominal pain. rn Onset: The symptoms/episode began/occurred yesterday. Possible causes: unknown. The symptoms are aggravated by nothing. The symptoms are alleviated by nothing. Severity of symptoms: At their worst the symptoms were moderate in the emergency department the symptoms are unchanged. The patient has experienced a previous episode. Patient reports epigastric abdominal pain that radiates to the back, associated with nausea and vomiting, no hematemesis. No fever or chills. No diarrhea. Worse after eating pizza last night. Has history of acid reflux and similar episode of pain a few months ago improved with antacid medication. Has already had cholecystectomy. Denies any trouble breathing. No chest pain. No history of pancreatitis or alcoholism. No blood in stool or dark stool.. 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 - Hospitalizations: : No recent hospitalization is reported. ROS: 08:58 Constitutional: Negative for fever, chills, and weight loss, Cardiovascular: Negative rn for chest pain, palpitations, and edema, Respiratory: Negative for shortness of breath, cough, wheezing, and pleuritic chest pain, Abdomen/GI: Positive for abdominal pain with nausea and vomiting MS/Extremity: Negative for injury and deformity, Skin: Negative for injury, rash, and discoloration, Neuro: Negative for headache, weakness, numbness, tingling, and seizure, Exam: 08:58 Constitutional: This is a well developed, well nourished patient who is awake, alert, rn appears uncomfortable Cardiovascular: Regular rate and rhythm. No pulse deficits. Respiratory: Tachypnea, no retractions Abdomen/GI: Soft, + epigastric abd tenderness, no rebound Vital Signs: 08:38 Pulse 79; Pulse Ox 100% on R/A; Height 5 ft. 2 in. ; Pain 9/10; ss 08:39 BP 129 / 90; Resp 22; ss 11:00 BP 94 / 68; Pulse 51; Resp 16; Pulse Ox 99% ; bp 12:15 BP 122 / 80; Pulse 66; Resp 16; Pulse Ox 99% ; bp 08:38 Pain Scale: Adult ss MDM: 08:35 Medical Screening Exam initiated rn 11:57 Differential diagnosis: Nonspecific abd pain, gastritis, pancreatitis, appendicitis, rn diverticulitis, viral gastroenteritis, gastroenteritis. Data reviewed: vital signs, nurses notes, lab test result(s), radiologic studies, CT scan, and as a result, I will admit patient. Consideration of Admission/Observation Patient was admitted/placed on observation. Escalation of care including admission/observation considered. Counseling: I had a detailed discussion with the patient and/or guardian regarding the historical points, exam findings, and any diagnostic results supporting the discharge/admit diagnosis, lab results, radiology results, the need for further work-up and treatment in the hospital. Response to treatment: the patient's symptoms have mildly improved after treatment, and as a result, I will admit patient. 11/03 08:36 Order name: CBC with Diff; Complete Time: 10:48 rn 11/03 08:36 Order name: CMP; Complete Time: 10:48 rn 11/03 08:36 Order name: Lipase; Complete Time: 10:48 rn 11/03 08:36 Order name: Test, Urine rn 11/03 08:36 Order name: Urinalysis w/ reflexes rn 11/03 10:27 Order name: CBC Smear Scan; Complete Time: 10:48 EDWV 11/03 13:18 Order name: CBC with Automated Diff EDMS 11/03 13:18 Order name: CBC with Automated Diff EDMS 11/03 13:18 Order name: Comprehensive Metabolic Panel EDMS 11/03 13:18 Order name: Comprehensive Metabolic Panel EDMS 11/03 13:18 Order name: Magnesium EDMS 11/03 13:18 Order name: Magnesium EDMS 11/03 13:18 Order name: Phosphorus EDMS 11/03 13:18 Order name: Phosphorus EDMS 11/03 08:58 Order name: CT Abd/Pelvis - IV Contrast Only; Complete Time: 11:23 rn 11/03 08:36 Order name: IV Saline Lock; Complete Time: 09:00 rn 11/03 08:36 Order name: Labs collected and sent; Complete Time: 09:00 rn 11/03 09:16 Order name: Labs - recollect needed: recollect lavender top; Complete Time: 09:28 bd Administered Medications: 09:12 Drug: Famotidine IVP 20 mg IVP once; dilute with 10 mL 0.9% NaCl; give over 2 minutes bp Route: IVP; Site: left forearm; 11:43 Follow up: Response: No adverse reaction bp 09:13 Drug: GI Cocktail without - (Maalox PO 30 ml, Lidocaine Mucous Membrane 2 % 15 bp ml) PO once Route: PO; 11:43 Follow up: Response: No adverse reaction bp 09:13 Drug: morphine IVP or IV 4 mg IVP once over 4 mins Route: IVP; Infused Over: 4 mins; bp Site: left forearm; 11:43 Follow up: Response: No adverse reaction bp 09:13 Drug: Ondansetron IVP 4 mg IVP once; over 2 minutes Route: IVP; Site: left forearm; bp 11:43 Follow up: Response: No adverse reaction bp 09:13 Drug: NS 0.9% IV 500 ml IV at bolus once; to be given as a bolus over 30 minutes Route: bp IV; Rate: bolus; Site: left forearm; 14:13 Follow up: IV Status: Completed infusion bp 12:09 Drug: Piperacillin-Tazobactam IVPB 3.375 grams IVPB once over 60 mins; (mix in NS 100 bp mL) Route: IVPB; Infused Over: 60 mins; Site: right antecubital; 14:13 Follow up: IV Status: Completed infusion bp 12:10 Drug: NS 0.9% IV 1000 ml IV at 1000 ml once; to be given as a bolus over 60 minutes bp Route: IV; Rate: 1000 ml; Site: right antecubital; 14:12 Follow up: IV Status: Completed infusion bp 12:24 Drug: Promethazine IVP 12.5 mg IVP once Route: IVP; Site: right antecubital; bp 14:13 Follow up: Response: No adverse reaction bp Disposition Summary: 11/03/24 11:58 Hospitalization Ordered Notes: Hospitalization Status: Observation rn Provider: James Roldan rn Location: Telemetry/MedSurg (observation) rn Condition: Stable rn Problem: new rn Symptoms: have improved rn Bed/Room Type: Standard rn Room Assignment: 410(11/03/24 13:26) bd Diagnosis - Infectious gastroenteritis and colitis, unspecified rn - Ileus, unspecified rn - Other intestinal obstruction rn Forms: - Medication Reconciliation Form rn - SBAR form rn - Leadership Thank You Letter rn Signatures: Dispatcher [employer] Antonia Culp Roman, MD MD rn Blanchard, Shelby, RN RN ss Dima Hatch RN RN bp Corrections: (The following items were deleted from the chart) 13:26 11:58 rn bd
--- NOTE | 2024-11-03 11:58 | ER ---
Nurse's Notes [facility] Name: Brandi Felix Age: 49 yrs Sex: Female : 1975 Arrival Date: 11/03/2024 Time: 08:30 Bed 16 Private MD: Diagnosis: Infectious gastroenteritis and colitis, unspecified;Ileus, unspecified;Other intestinal obstruction Presentation: 11/03 08:38 Chief complaint: Patient states: N/V and epigastric pain that began this morning. ss Coronavirus screen: Client denies travel out of the [place] in the last 14 days. Ebola Screen: Patient denies exposure to infectious person. Patient denies travel to an Ebola-affected area in the 21 days before illness onset. Initial Sepsis Screen: Does the patient meet any 2 criteria? No. Patient's initial sepsis screen is negative. Does the patient have a suspected source of infection? No. Patient's initial sepsis screen is negative. Risk Assessment: Do you want to hurt yourself or someone else? Patient reports no desire to harm self or others. Onset of symptoms was November 03, 2024. 08:38 Method Of Arrival: Wheelchair ss 08:38 Acuity: TERRENCE 3 ss Triage Assessment: 08:45 General: Appears distressed, uncomfortable, Behavior is cooperative, appropriate for bp age, agitated, anxious. Pain: Complains of pain in abdomen. EENT: No deficits noted. Neuro: No deficits noted. Cardiovascular: No deficits noted. Respiratory: No deficits noted. GI: Abdomen is non-distended, Reports cramping, indigestion. : No signs and/or symptoms were reported regarding the genitourinary system. Derm: No deficits noted. Musculoskeletal: No deficits noted. 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 - Hospitalizations: : No recent hospitalization is reported. Screenin:[facility] ED Fall Risk Assessment (Adult) History of falling in the last 3 months, bp including since admission No falls in past 3 months (0 pts) Confusion or Disorientation No (0 pts) Intoxicated or Sedated No (0 pts) Impaired Gait No (0 pts) Mobility Assist Device Used No (0 pt) Altered Elimination No (0 pt) Score/Fall Risk Level 0 - 2 = Low Risk Oriented to surroundings. Abuse screen: Denies threats or abuse. Denies injuries from another. Nutritional screening: No deficits noted. Tuberculosis screening: No symptoms or risk factors identified. Assessment: 08:45 General: Appears distressed, uncomfortable, Behavior is cooperative, appropriate for bp age, agitated, anxious. 10:58 Reassessment: Patient appears in no apparent distress at this time. Patient is alert, bp oriented x 3, equal unlabored respirations, skin warm/dry/pink. 12:16 Reassessment: ADMIT INITIATED. bp 14:15 Reassessment: REPORT FAXED TO 410. bp Vital Signs: 08:38 Pulse 79; Pulse Ox 100% on R/A; Height 5 ft. 2 in. ; Pain 9/10; ss 08:39 BP 129 / 90; Resp 22; ss 11:00 BP 94 / 68; Pulse 51; Resp 16; Pulse Ox 99% ; bp 12:15 BP 122 / 80; Pulse 66; Resp 16; Pulse Ox 99% ; bp 08:38 Pain Scale: Adult ss ED Course: 08:30 Patient arrived in ED. im 08:32 Dima Hatch, JOSHUA is Primary Nurse. bp 08:35 Israel Prado MD is Attending Physician. rn 08:39 Triage completed. ss 08:39 Arm band placed on right wrist. ss 09:00 Initial lab(s) drawn, by me, sent to lab. Inserted saline lock: 22 gauge in left bp forearm, using aseptic technique. Blood collected. Flushed with 10 mL NS. 10:16 CT Abd/Pelvis - IV Contrast Only In Process Unspecified. EDMS 10:59 Patient has correct armband on for positive identification. bp 11:58 James Roldan MD is Hospitalizing Provider. rn Administered Medications: 09:12 Drug: Famotidine IVP 20 mg IVP once; dilute with 10 mL 0.9% NaCl; give over 2 minutes bp Route: IVP; Site: left forearm; 11:43 Follow up: Response: No adverse reaction bp 09:13 Drug: GI Cocktail without - (Maalox PO 30 ml, Lidocaine Mucous Membrane 2 % 15 bp ml) PO once Route: PO; 11:43 Follow up: Response: No adverse reaction bp 09:13 Drug: morphine IVP or IV 4 mg IVP once over 4 mins Route: IVP; Infused Over: 4 mins; bp Site: left forearm; 11:43 Follow up: Response: No adverse reaction bp 09:13 Drug: Ondansetron IVP 4 mg IVP once; over 2 minutes Route: IVP; Site: left forearm; bp 11:43 Follow up: Response: No adverse reaction bp 09:13 Drug: NS 0.9% IV 500 ml IV at bolus once; to be given as a bolus over 30 minutes Route: bp IV; Rate: bolus; Site: left forearm; 14:13 Follow up: IV Status: Completed infusion bp 12:09 Drug: Piperacillin-Tazobactam IVPB 3.375 grams IVPB once over 60 mins; (mix in NS 100 bp mL) Route: IVPB; Infused Over: 60 mins; Site: right antecubital; 14:13 Follow up: IV Status: Completed infusion bp 12:10 Drug: NS 0.9% IV 1000 ml IV at 1000 ml once; to be given as a bolus over 60 minutes bp Route: IV; Rate: 1000 ml; Site: right antecubital; 14:12 Follow up: IV Status: Completed infusion bp 12:24 Drug: Promethazine IVP 12.5 mg IVP once Route: IVP; Site: right antecubital; bp 14:13 Follow up: Response: No adverse reaction bp Outcome: 11:58 Decision to Hospitalize by Provider. rn 15:07 Patient left the ED. bp Signatures: Dispatcher [employer] EDMS Israel Prado MD MD rn Blanchard, Shelby, RN RN ss Peltier, Brian, RN RN bp Mendoza, Itzel Corrections: (The following items were deleted from the chart) 11:00 10:59 No provider procedures requiring assistance completed. bp bp 11:00 10:59 IV discontinued, intact, bleeding controlled, No redness/swelling at site. bp Pressure dressing applied, bp
[2024-11-03] MEDS ORDERED: NA CHLORIDE 0.9% 100 ML ONE (12:04)
[2024-11-03] MEDS ORDERED: PIPERACIL/TAZO 3.375 GM VIAL IV ONE (12:05)
[2024-11-03] MEDS ORDERED: NA CHLORIDE 0.9% 1,000 ML ONE (12:12)
[2024-11-03] MEDS ORDERED: PROMETHAZINE INJ 25 MG/ML AMP ONE (12:19)
[2024-11-03] MEDS ORDERED: BISMUTH SUBSALICYL 262MG/15ML-240 ML BTL PO PRN (13:13)
[2024-11-03] MEDS ORDERED: ONDANSETRON 4 MG/2 ML VIAL IV PRN (13:13)
--- NOTE | 2024-11-03 13:13 | P.HP ---
Certification for Inpatient Patient admitted to: Observation With expected LOS: <2 Midnights Practitioner: I am a practitioner with admitting privileges, knowledge of patient current condition, hospital course, and medical plan of care. Services: Services provided to patient in accordance with Admission requirements found in Title 42 Section 412.3 of the Code of Federal Regulations Patient History Date of Service: 11/03/24 Reason for admission: nausea vomiting History of Present Illness: 49-year-old female who presented to ER with nausea vomiting abdominal pain. Symptoms started last night. Reports after eating pizza. Denies any diarrhea or fevers. She states that she had similar symptoms in May 2024. The patient did report 1 episode of feeling that food was getting stuck. She did have a CT scan completed in the emergency room. She was given IV fluids antiemetics and given a dose of antibiotics. She denies having a previous EGD done. Allergies No Known Allergies Allergy (Unverified 01/24/16 16:33) Review of Systems 10-point ROS is otherwise unremarkable Gastrointestinal: Nausea, Abdominal Pain Physical Examination - Physical Exam General: Alert, Oriented x3 HEENT: Atraumatic, Normocephalic Respiratory: Clear to auscultation bilaterally, Normal air movement Cardiovascular: Regular rate/rhythm, Normal S1 S2 Gastrointestinal: Soft and benign, Non-distended, No tenderness Musculoskeletal: No swelling Integumentary: No rashes, No breakdown - Studies Laboratory Data (last 24 hrs) 11/03/24 11/03/24 09:30 09:00 WBC 7.50 Hgb 14.1 Hct 41.0 Plt Count 257 Sodium 135 L Potassium 3.9 BUN 10 Creatinine 0.65 Glucose 147 H Total Bilirubin 0.5 AST 22 ALT 18 Alkaline Phosphatase 63 Lipase 35 Assessment and Plan - Problems (Diagnosis) (1) Gastritis Current Visit: Yes Status: Acute (2) Nausea & vomiting Current Visit: Yes Status: Acute - Plan 49-year-old female presents with 1 day history of nausea vomiting abdominal pain. Differentials include gastritis. #gastritis #nausea and vomiting #abdominal pain Plan: Will admit for observation Continue IV fluids, clear liquid diet, as needed Zofran Pepcid Zosyn given in the ER. Will hold off on antibiotics for now Consider outpatient follow-up with GI for EGD Anticipate discharge in 24 hours - Advance Directives Does patient have a Living Will: No Does patient have a Durable POA for Healthcare: No
[2024-11-03] MEDS: NA CHLORIDE 0.9% 1,000 ML IV SCH (15:17)
[2024-11-03 15:33] VITALS: O2SAT 99
[2024-11-03 15:43] VITALS: BMI 24.7
[2024-11-03] MEDS: FAMOTIDINE 20 MG/2 ML VIAL IV SCH (20:39)
[2024-11-04 06:08] LABS: Absolute Basophils 0.1 K/uL (0-0.5); Absolute Eosinophils 0.1 K/uL (0-0.5); Absolute Lymphocytes (CBC) 1.8 K/uL (0.7-4.9); Absolute Monocytes 0.3 K/uL (0.1-1.3); Basophils % 1.1 % (0-1.3); Eosinophils % 1.4 % (0-4.4); Hematocrit 35.1 % (36.0-45.0); Hemoglobin 11.9 g/dL (12.0-15.0); MCH 32.7 pg (27.0-35.0); MCV 96.2 fL (80-100); MPV 8.1 fL (7.6-11.3); Monocytes % 5.1 % (3.3-12.3); Neutrophils % 58.4 % (41.7-73.7); Nucleated Red Blood Cells % 0.1 % (0-0); Platelets 246 thou/uL (152-406); RBC Red Blood Cell Count 3.64 M/uL (3.86-4.86)
[2024-11-04] MEDS: METRONIDAZOLE 500mg IVPB 500 MG/100 ML BAG IV SCH (08:06)
[2024-11-04] MEDS: ACETAMINOPHEN 500 MG TAB PO PRN (08:06)
[2024-11-04 08:22] VITALS: BP 129/86; TEMP 98.4
[2024-11-04 09:07] LABS: Albumin 3.1 g/dL (3.4-5.0); Albumin/Globulin Ratio 1.1 (1.1-1.8); Anion Gap 7.4 mEq/L (5.0-15.0); Bilirubin Total 0.5 mg/dL (0.2-1.0); Globulin 2.7 g/dL (2.3-3.5); Magnesium 2.3 mg/dL (1.6-2.4); Phosphorus 2.2 mg/dL (2.5-4.9); Potassium 3.4 mEq/L (3.5-5.1); Protein, Total 5.8 g/dL (6.4-8.2)
--- NOTE | 2024-11-04 10:39 | P.DS ---
Admission Date: 11/03/24 Discharge Date: 11/04/24 Discharge Condition: FAIR Reason for Admission: nausea vomiting Procedures: ct abdomen pelvis - Problems (1) Gastritis Current Visit: Yes Status: Acute (2) Nausea & vomiting Current Visit: Yes Status: Acute Brief History of Present Illness: 49-year-old female who presented to ER with nausea vomiting abdominal pain. Symptoms started last night. Reports after eating pizza. Denies any diarrhea or fevers. She states that she had similar symptoms in May 2024. The patient did report 1 episode of feeling that food was getting stuck. She did have a CT scan completed in the emergency room. She was given IV fluids antiemetics and given a dose of antibiotics. She denies having a previous EGD done. Hospital Course: 49-year-old female presents with nausea vomiting abdominal pain diarrhea for 1 day. She reports similar symptoms in May 2024. In the ER she had a CT scan of the abdomen pelvis. Diagnosed with gastritis. Given IV fluid antiemetic emetics and antibiotics. Her labs were monitored. His symptoms improved. She did not have a primary care or GI. She is going to schedule those appointments. She is discharged in improved condition. Discharge time less than 30 minutes Vital Signs/Physical Exam: Temp Pulse Resp BP Pulse Ox 98.4 F 65 17 129/86 96 11/04/24 08:00 11/04/24 08:00 11/04/24 08:00 11/04/24 08:00 11/04/24 08:00 General: Alert, In no apparent distress, Oriented x3 HEENT: Atraumatic, Normocephalic Respiratory: Clear to auscultation bilaterally, Normal air movement Gastrointestinal: Normal bowel sounds, Soft and benign Musculoskeletal: No clubbing, No swelling, No contractures Neurological: Normal speech Laboratory Data at Discharge: WBC 5.20 thou/uL (4.3-10.9) 11/04/24 05:36 Hgb 11.9 g/dL (12.0-15.0) L D 11/04/24 05:36 Hct 35.1 % (36.0-45.0) L 11/04/24 05:36 Plt Count 246 thou/uL (152-406) 11/04/24 05:36 Sodium 141 mEq/L (136-145) D 11/04/24 05:36 Potassium 3.4 mEq/L (3.5-5.1) L 11/04/24 05:36 BUN 8 mg/dL (7-18) 11/04/24 05:36 Creatinine 0.54 mg/dL (0.55-1.02) L 11/04/24 05:36 Glucose 87 mg/dL (74-106) 11/04/24 05:36 Phosphorus 2.2 mg/dL (2.5-4.9) L 11/04/24 05:36 Magnesium 2.3 mg/dL (1.6-2.4) 11/04/24 05:36 Total Bilirubin 0.5 mg/dL (0.2-1.0) 11/04/24 05:36 AST 19 U/L (15-37) 11/04/24 05:36 ALT 15 U/L (13-56) 11/04/24 05:36 Alkaline Phosphatase 47 U/L (45-117) D 11/04/24 05:36 Lipase 35 U/L (13-75) 11/03/24 09:00 Home Medications: Ondansetron [Zofran] 4 mg PO Q6H PRN #20 tab 11/04/24 metroNIDAZOLE [Metronidazole] 250 mg PO Q8HR #12 11/04/24 New Medications: metroNIDAZOLE [Metronidazole] 250 mg PO Q8HR #12 Ondansetron [Zofran] 4 mg PO Q6H PRN #20 tab PRN Reason: Nausea / Vomiting Diet: Regular Activity: Ad chayito Followup: NONE,NONE [Primary Care Provider] -
== END 2024-11-04 12:10 | disposition home or self-care (01) ==
LOC: ER 08:30 → ERHOLD 13:13 → 4TH 14:19
PROVIDERS: ADMIT Internal Medicine; ATTEND Internal Medicine
DX: K29.70 Gastritis, unspecified, without bleeding (principal); R11.2 Nausea with vomiting, unspecified; R10.9 Unspecified abdominal pain
CPT/HCPCS: 36415; 74177; 80053; 83690; 83735; 84100; 85025; 99284; G0378; J2405; J2543; J2550; J7030; J7040; Q9967